=== PATIENT | female | born 1945 | race Caucasian/White ===

== ENCOUNTER 2018-01-29 09:48 | Emergency (ER) | payer MEDICARE ==
--- NOTE | 2018-01-29 11:04 | RAD ---
HISTORY: Right leg pain TECHNIQUE: Multiple transverse and longitudinal ultrasound images were obtained of the veins of the right lower extremity using grayscale, color Doppler, and spectral Doppler imaging with and without compression and with augmentation. FINDINGS: VEINS: The common femoral vein, deep femoral vein, femoral vein and popliteal vein are compressible throughout their course, with normal flow on color Doppler imaging and normal response to augmentation on spectral Doppler imaging. SOFT TISSUES: Grossly normal. No large popliteal fossa cyst was identified. IMPRESSION: No sonographic evidence of deep vein thrombosis.
--- OUTSIDE RECORDS SUMMARY | 2018-01-29 11:19 | XMS REPORT ---
:1945 External Reference #:[id number] Author Organization [facility] Address [address] [address] Phone [phone] Care Team Providers Name Role Phone Ehsan Padilla MD Primary Care Physician Unavailable Payers Type Date Identification Numbers Payment Provider Subscriber Medicare Primary Policy Number: [id number] Medicare Sidra Salazar PayID: [id number] [address] [place] [address] [facility] Policy Number: [id number] [facility] Sidra Salazar PayID: [id number] [address] [place] [address] Problems Date Description Provider Status Onset: 08/21/2015 Essential tremor Idalmis Parry M.D. Active Onset: 08/21/2015 Resting tremor Idalmis Parry M.D. Active Note: consistent with parkinson's disease Onset: 12/10/2015 Mild cognitive disorder Idalmis Parry M.D. Active Note: MoCA: 10/28: ; 01/28: ; 01/29: Onset: 12/10/2015 Olfactory hallucinations Idalmis Parry M.D. Active Onset: 12/10/2015 Spasmodic torticollis Idalmis Parry M.D. Active Family History Date Family Member(s) Problem(s) Comments General Cancer Social History Type Date Description Comments Lives With Roommate ETOH Use Denies alcohol use Smoking Patient is a former smoker patient quit in her early 20, smoked for approx. 5 yrs, ppd Exercise Type/Frequency Exercises regularly Allergies, Adverse Reactions, Alerts Date Description Reaction Status Severity Comments 08/21/2015 Quinolones Tendonitis active Severe 11/21/2014 NKDA inactive Medications Medication Date Status Form Strength Qnty SIG Indications Ordering Provider Baclofen 07/27 Active Tablets 10mg 60tab 1 by mouth G24.3 Idalmis s twice a day Mac Parry Carbidopa-Levodop 08/21 Active Tablets 25-100mg 120ta take one R25.1 Idalmis bs tablet by edouard Parry 30 M.DSandy minutes prior to breakfast, lunch and dinner, and 1 dose at 7pm Evista Active Tablets 60mg 30tab 1 by mouth Unknown /0000 s every day Metoprolol Active 25mg 1 tab po bid Unknown / Omeprazole Active Capsules 20mg 30cap 2 by mouth Unknown /0000 DR s every day Vitamin A Active Tablets 8000Units 1 by mouth Unknown /0000 every day B Complex Active Tab 50mg 1 tab po Unknown /0000 daily Multivitamins Active Tab 2 tabs po Unknown /0000 daily Benadryl Active Tablets 25mg 2 tab po qhs Unknown /0000 prn sleep Docusate Sodium Active Capsules 100mg 2 caps po Unknown /0000 daily Cyanocobalamin Active Tablets 1000mcg one po a day Unknown /0000 Sub Duloxetine HCL Active Caps DR 60mg 1 by mouth Unknown /0000 Part every day Lorazepam Active Tablets 0.5mg 1 tab po q Unknown /0000 8h prn Metamucil Active Powder 30.9% mix 2 Unknown /0000 tablespoon in 8 oz water daily prn Oxycodone-Acetami Active Tablets 5-325mg take 1 Unknown nophen /0000 tablet by mouth every 6 hours as needed pain Prochlorperazine Active Tablets 10mg 1 by mouth Unknown Maleate /0000 every 6 hours as needed nausea Sucralfate Active Tablets 1gm 1 by mouth 4 Unknown /0000 times a day Calcium Citrate + Active Tablets 315-250mg bid Unknown D3 Maximum /0000 -Unit Oxybutynin Active Tablets 5mg qd Unknown Chloride ER /0000 ER 24HR Primidone 06/09 Hx Tablets 50mg 30tab 1 tab by Rayo /2015 s mouth a day Zulema Espino MD 07/07 Primidone Hx Tab 250mg 1 tab po bid Unknown /0000 - 06/[address] 60mg 90cap 1 by mouth Unknown /0000 Part s every day - 10/14 Vitamin B 12 Hx Unknown /0000 - 08/14 Zyrtec Allergy Hx Unknown /0000 - 08/14 Augmented Hx Cream 0.05% apply to Unknown Betamethasone /0000 affected Dipropionate - area daily 08/14 prn /2014 Citracal + D Hx Tabs 4 tabs po Unknown / daily - 10/14 Cranberry Hx Cap 2 caps po Unknown Concentrate / daily - 01/23 Ferrous Gluconate Hx Tablets 324(37.5F 1 by mouth Unknown /0000 e) mg tid - 01/23 Tizanidine HCL Hx Tablets 4mg 1 tab po qhs Unknown /0000 for leg - cramps 07/27 Trazodone HCL Hx Tablets 100mg 1/2 to 1 tab Unknown /0000 po by mouth - every night 10/14 at bedtime /2014 prn Vitamin D Hx Tablets 1000Unit 1 tab po bid Unknown / - 04/20 Premarin Hx Cream 0.625mg/G use1 Unknown /0000 M applicator - intavaginal 10/11 3x per week /2016 Medications Administered in Office Medication Date Status Form Strength Qnty SIG Indications Ordering Provider Injection 10/12 Administered Injection Idalmis Onabotulinumtoxin /2016 Cowdery, A, 1 Unit M.D. Injection 07/08 Administered Injection Idalmis Onabotulinumtoxin /2016 Cowdery, A, 1 Unit M.D. Injection 07/08 Administered Injection Idalmis Onabotulinumtoxin /2017 Cowdery, A, 1 Unit M.D. Injection 02/18 Administered Injection Idalmis Onabotulinumtoxin /2017 Cowdery, A, 1 Unit M.D. Vital Signs Date Vital Result Comment 2018 Height 61 inches 5'1" Weight 126.38 lb Heart Rate 66 /min BP Systolic Sitting 112 mmHg BP Diastolic Sitting 70 mmHg Respiratory Rate 16 /min BMI (Body Mass Index) 23.9 kg/m2 11/30/2017 Height 61 inches 5'1" Weight 123.00 lb Heart Rate 60 /min BP Systolic Sitting 118 mmHg BP Diastolic Sitting 78 mmHg Respiratory Rate 16 /min BMI (Body Mass Index) 23.2 kg/m2 10/12/2017 Height 61 inches 5'1" Weight 123.50 lb Heart Rate 72 /min BP Systolic Sitting 108 mmHg BP Diastolic Sitting 72 mmHg Respiratory Rate 16 /min BMI (Body Mass Index) 23.3 kg/m2 07/27/2017 Height 61 inches 5'1" Weight 118.00 lb Heart Rate 68 /min BP Systolic Sitting 110 mmHg BP Diastolic Sitting 74 mmHg Respiratory Rate 16 /min BMI (Body Mass Index) 22.3 kg/m2 07/08/2017 Height 61 inches 5'1" Weight 118.00 lb Heart Rate 60 /min BP Systolic Sitting 110 mmHg BP Diastolic Sitting 60 mmHg Respiratory Rate 16 /min BMI (Body Mass Index) 22.3 kg/m2 04/04/2017 Height 61 inches 5'1" Weight 121.00 lb Heart Rate 76 /min BP Systolic Sitting 112 mmHg BP Diastolic Sitting 74 mmHg Respiratory Rate 14 /min BMI (Body Mass Index) 22.9 kg/m2 02/18/2017 Height 61 inches 5'1" Weight 122.00 lb Heart Rate 64 /min BP Systolic Sitting 128 mmHg BP Diastolic Sitting 78 mmHg Respiratory Rate 14 /min BMI (Body Mass Index) 23.0 kg/m2 01/24/2017 Height 61 inches 5'1" Weight 120.00 lb Heart Rate 68 /min BP Systolic Sitting 108 mmHg BP Diastolic Sitting 68 mmHg Respiratory Rate 14 /min BMI (Body Mass Index) 22.7 kg/m2 04/21/2016 Height 61 inches 5'1" Weight 117.00 lb Heart Rate 76 /min BP Systolic Sitting 122 mmHg BP Diastolic Sitting 78 mmHg Respiratory Rate 14 /min BMI (Body Mass Index) 22.1 kg/m2 12/10/2015 Height 61 inches 5'1" Weight 122.00 lb Heart Rate 72 /min BP Systolic Sitting 112 mmHg BP Diastolic Sitting 68 mmHg Respiratory Rate 20 /min BMI (Body Mass Index) 23.0 kg/m2 11/12/2015 Height 61 inches 5'1" Weight 124.00 lb Heart Rate 68 /min BP Systolic Sitting 112 mmHg BP Diastolic Sitting 64 mmHg Respiratory Rate 16 /min BMI (Body Mass Index) 23.4 kg/m2 08/21/2015 Height 61 inches 5'1" Weight 128.00 lb Heart Rate 68 /min BP Systolic Sitting 120 mmHg BP Diastolic Sitting 74 mmHg Respiratory Rate 20 /min BMI (Body Mass Index) 24.2 kg/m2 11/21/2014 Height 63 inches 5'3" Weight 120.00 lb Heart Rate 65 /min BP Systolic 106 mmHg BP Diastolic 64 mmHg BMI (Body Mass Index) 21.3 kg/m2 Results Description No Information Procedures Date CPT Code Description Status 10/12/2017 15271 Chemodenervation Of Neck Muscles Excluding Larynx, Completed Unilateral 07/08/2017 98057 Chemodenervation Of Neck Muscles Excluding Larynx, Completed Unilateral 02/18/2017 42016 Chemodenervation Of Neck Muscles Excluding Larynx, Completed Unilateral 11/12/2015 52173 EEG Recording Awake & Drowsy Completed Encounters Type Date Location Provider CPT E/M Dx Office Visit 2018 8:00a [facility] Idalmis Parry M.D. 15120 G20 [facility] Research Physician G24.3 G31.84 Office Visit 11/30/2017 11:45a [facility] Idalmis Parry M.D. 35586 G20 [facility] Physician G24.3 G25.0 G31.84 Office Visit 07/27/2017 2:00p [facility] Idalmis Parry M.D. 60476 G24.3 Services [facility] Faculty Research Physician G20 G25.0 Office Visit 04/04/2017 4:30p [facility] Idalmis Parry M.D. 94450 G24.3 Services [facility] Research Physician G20 Office Visit 01/24/2017 10:30a [facility] Idalmis Parry M.D. 57881 G20 [facility] Physician G25.0 G31.84 G24.3 Office Visit 04/21/2016 1:15p [facility] Idalmis Parry M.D. 40259 G20 [facility] Physician G25.0 G31.84 G24.3 Office Visit 12/10/2015 11:00a [facility] Idalmis Parry M.D. 90749 G20 G25.0 G24.3 G31.84 R44.2 Office Visit 11/22/2015 12:27p [facility] Keshia Rutherford, 63670 T18.2xxA Assoc, Hospitalists Mac Z98.84 R00.2 F32.9 Office Visit 11/12/2015 10:00a [facility] Idalmis Parry M.D. 81443 G20 R44.2 R41.89 G25.0 G24.3 Office Visit 08/21/2015 9:00a [facility] Idalmis Parry, 69569 G25.0 Mac G25.2 R41.89 Office Visit 11/21/2014 8:00a [facility], 04512 727.05 Mery Watts Office Visit 03/19/2013 11:25a [facility] Ana Luisa Arellano, N.P. 44529 789.06 Assoc, Hospitalists 787.02 793.99 275.42 Office Visit 03/18/2013 11:24a [facility], Vlad Armijo, 77516 789.06 Hospitalists N.P. 787.02 793.99 275.42 Office Visit 03/17/2013 11:23a [facility] [place] [address] 789.06 Hospitalists 787.02 793.99 275.42 Plan of Care Future Appointment(s):05/24/2018 10:45 am - Idalmis Parry M.D. at [facility]08/02/2018 10:30 am - Idalmis Parry M.D. at [facility]2018 - Idalmis Parry M.D.G20 Parkinson's diseaseFollow up:4 months for parkinsons (15 min) every 3 months for botox (30 min)G24.3 Spasmodic torticollisFollow up:botox: q 3 ukpndnS04.84 Mild cognitive impairment, so stated
--- NOTE | 2018-01-29 11:45 | ED ---
Lower Extremity - HPI Summary HPI Summary: 73 female presents to ED with complaints of right lower extremity/calf pain that began approximately 1 week ago and worsened this morning after touching it accidentally with her left foot. States the pain as been a dull ache worse with use of calf, walking etc. States the pain this morning woke her up from sleep. She does get cramps/muscle spasms throughout MSK and does have parkinsons. Denies any discoloration, erythema, edema, numbness/tingling or obvious external findings. Pain increases when moving calf muscle. No other complaints. No PMHX. Has not tried any medications. Does take baclofen daily for her torticollis. No recent trauma or injury. No recent travel, prolonged bed rest, cigarette use. No cancer history or DVT history. No anticoagulant therapy. Unable to take NSAIDs due to getting uclers. no chest pain or trouble breathing. - History of Current Complaint Chief Complaint: EDExtremityLower Stated Complaint: RT LEG PAIN Time Seen by Provider: 01/29/18 10:55 Hx Obtained From: Patient Mechanism Of Injury: Unknown Onset of Pain: Days Onset/Duration: Resolved Severity Initially: Mild Severity Currently: Mild Pain Intensity: 2 Pain Scale Used: 0-10 Numeric Timing: Intermittent Location: Is Discrete @ - right posterior calf Character Of Pain: Sharp, Aching Associated Signs And Symptoms: Positive: Negative Aggravating Factor(s): Movement Alleviating Factor(s): Rest Able to Bear Weight: Yes Legs: 1 - pain - Allergies/Home Medications Allergies/Adverse Reactions: Allergies Allergy/AdvReac Type Severity Reaction Status Date / Time Quinazolinones Allergy Joint Pain Verified 01/29/18 10:02 PMH/Surg Hx/FS Hx/Imm Hx Endocrine/Hematology History: Denies: Hx Diabetes Cardiovascular History: Reports: Other Cardiovascular Problems/Disorders - PALPITATIONS Denies: Hx Hypertension, Hx Pacemaker/ICD GI History: Reports: Hx Gall Bladder Disease, Hx Gastroesophageal Reflux Disease , Hx Hiatal Hernia, Hx Obstructive Bowel, Other GI Disorders - gastric bypass. Lysis of adhesions History: Denies: Hx Renal Disease Musculoskeletal History: Reports: Hx Arthritis, Hx Osteoporosis, Hx Scoliosis Sensory History: Reports: Hx Contacts or Glasses Denies: Hx Hearing Aid Opthamlomology History: Reports: Hx Contacts or Glasses Psychiatric History: Reports: Hx Depression Denies: Hx Panic Disorder - Surgical History Surgery Procedure, Year, and Place: GASTRIC BYPASS 2008 cholycystectomy 1985, lysis of adhesions. fundopycation. Hysterectomy 1987, CATARACT - Immunization History Immunizations Up to Date: Yes Infectious Disease History: No Infectious Disease History: Denies: Traveled Outside the [place] in Last 30 Days - Family History Known Family History: Positive: None - Social History Alcohol Use: None Substance Use Type: Reports: None Smoking Status (MU): Former Smoker Type: Cigarettes Have You Smoked in the Last Year: No Review of Systems Constitutional: Negative Cardiovascular: Negative Respiratory: Negative Positive: Arthralgia, Myalgia - right calf Skin: Negative All Other Systems Reviewed And Are Negative: Yes Physical Exam Triage Information Reviewed: Yes Vital Signs On Initial Exam: Initial Vitals Temp Pulse Resp BP Pulse Ox 98.2 F 86 14 126/74 98 01/29/18 10:02 01/29/18 10:02 01/29/18 10:02 01/29/18 10:02 01/29/18 10:02 Vital Signs Reviewed: Yes Appearance: Positive: Well-Appearing, No Pain Distress, Well-Nourished Skin: Positive: Warm, Skin Color Reflects Adequate Perfusion, Dry. Negative: Cold, Cyanosis @, Pale, Erythema @ Head/Face: Positive: Normal Head/Face Inspection Neck: Positive: Supple Respiratory/Lung Sounds: Positive: Clear to Auscultation, Breath Sounds Present. Negative: Rales, Rhonchi, Wheezes Cardiovascular: Positive: Normal, RRR, Pulses are Symmetrical in both Upper and Lower Extremities - 2+ pedal bl. Negative: Murmur, Rub, Leg Edema Left, Leg Edema Right Musculoskeletal: Positive: Normal, Strength/ROM Intact, Pain @ - with plantar flexion and use of gastrocnemius muscle, no pain at rest or palpation, Other - no swelling, obvious deformity or erythema/edema. normal external exam. CMS intact. Negative: Limited @, Interruption @, Edema Left, Edema Right Neurological: Positive: Normal, Sensory/Motor Intact, Alert, Oriented to Person Place, Time, CN Intact II-III, Reflexes Intact, NV Bundle Intact Distally, Normal Gait Diagnostics - Vital Signs Vital Signs Temp Pulse Resp BP Pulse Ox 01/29/18 10:02 98.2 F 86 14 126/74 98 - Laboratory Lab Statement: Any lab studies that have been ordered have been reviewed, and results considered in the medical decision making process. - Ultrasound No standard instances Ultrasound Interpretation: No Acute Changes - No sonographic evidence of deep vein thrombosis. Ultrasound Interpretation Completed By: Radiologist Lower Extremity Course/Dx - Course Course Of Treatment: US obtained and negative for acute findings, cysts, DVTs. No recent trauma or injury requiring further imaging. Normal physical exam other than with use of calf muscle having pain. Appears to be sore from muscle cramp/spasm or muscle strain. unable to take nsaids. take pain medication and muscle relaxer already prescribed. [place] wrap applied for compression. gently stretch/massage. rest and heat. aware of worsening signs and symptoms to watch out for and to follow up with PCP. no other emergent etologies/concerns at this time. normal vitals. - Diagnoses Differential Diagnosis/HQI/PQRI: Positive: Sprain, Strain, Other - muscle cramp , muscle spasm, right calf pain Provider Diagnoses: Muscle spasm of right lower extremity, Right calf pain Discharge - Discharge Plan Condition: Good Disposition: HOME Patient Education Materials: Musculoskeletal Pain (ED), Muscle Cramp (ED) Referrals: Ehsan Padilla MD [Primary Care Provider] - 3 Days Additional Instructions: continue taking medications as prescribed at home. increase fluid intake, get plenty of vitamins and electrolytes to help prevent muscle cramping. Rest, apply heating pad and apply compression. Avoid over use. Gently stretch calf especially before use. Any new or worsening symptoms please seek medical attention promptly. Follow up with PCP for recheck in 3 days.
[2018-01-29 12:05] VITALS: BP 110/58
== END 2018-01-29 12:14 | disposition home or self-care (01) ==
LOC: ED 09:48
DX: M79.661 Pain in right lower leg (principal); M62.831 Muscle spasm of calf; Z88.8 Allergy status to other drugs, medicaments and biological substances; Z87.891 Personal history of nicotine dependence
CPT/HCPCS: 99282

== ENCOUNTER 2018-04-04 14:14 | Emergency (ER) | payer MEDICARE ==
[2018-04-04 14:38] VITALS: BP 120/70
--- NOTE | 2018-04-04 15:10 | UC ---
Lower Extremity/Ankle HPI - HPI Summary HPI Summary: PT STATES HER FEET "FELL ASLEEP" YESTERDAY WHILE SHE WAS SITTING DOWN (NOT UNUSUAL FOR HER) THEN SHE WENT TO STAND UP AND FELL. NOW HAS PAIN IN LEFT FOOT LATERALLY. SHE HAS BASELINE FOOT/ANKLE EDEMA AND SHE STATES THIS IS UNCHANGED FROM HER BASELINE. NO BRUISING. CAN WEIGHT BEAR BUT WITH PAIN. - History of Current Complaint Chief Complaint: UCLowerExtremity Stated Complaint: FOOT INJURY Time Seen by Provider: 04/04/18 15:00 Hx Obtained From: Patient Onset/Duration: Sudden Onset, Lasting Days - 1 DAY, Still Present Severity Initially: Moderate Severity Currently: Moderate Pain Intensity: 7 Pain Scale Used: 0-10 Numeric Aggravating Factor(s): Standing, Ambulation Alleviating Factor(s): Rest Able to Bear Weight: Yes - WITH PAIN - Allergies/Home Medications Allergies/Adverse Reactions: Allergies Allergy/AdvReac Type Severity Reaction Status Date / Time NSAIDS (Non-Steroidal Allergy Severe See Comment Verified 04/04/18 14:40 Anti-Inflamma Quinazolinones Allergy BILAT Verified 04/04/18 14:39 ACHILLES TENDONITIS Home Medications: Home Medications Glucosamine CAP (NF) 1 cap PO DAILY 04/04/18 [History Confirmed 04/04/18] Magnesium Oxide [Magnesium] 400 mg PO DAILY 04/04/18 [History Confirmed 04/04/18 ] Muscle Relaxer* PO BID 04/04/18 [History] PMH/Surg Hx/FS Hx/Imm Hx Other Neurological History: PARKINSONS - Surgical History Surgical History: Yes Surgery Procedure, Year, and Place: GASTRIC BYPASS 2007 cholycystectomy 1985, lysis of adhesions. fundopycation. Hysterectomy 1987, CATARACT, TONISILLECTOMY - Family History Known Family History: Positive: None Negative: Hypertension - Social History Alcohol Use: None Substance Use Type: None Smoking Status (MU): Former Smoker Type: Cigarettes Have You Smoked in the Last Year: No - Immunization History Most Recent Influenza Vaccination: August 2015 Most Recent Tetanus Shot: 2013 Most Recent Pneumonia Vaccination: 2007 Review of Systems Constitutional: Negative Skin: Negative Respiratory: Negative Cardiovascular: Negative Gastrointestinal: Negative Musculoskeletal: Arthralgia, Edema All Other Systems Reviewed And Are Negative: Yes Physical Exam Triage Information Reviewed: Yes Appearance: Well-Appearing, No Pain Distress, Well-Nourished Vital Signs: Initial Vital Signs Temp 97.9 F 04/04/18 14:34 Pulse 56 04/04/18 14:34 Resp 16 04/04/18 14:34 BP 120/70 04/04/18 14:34 Pulse Ox 99 04/04/18 14:34 Vital Signs Reviewed: Yes Eyes: Positive: Conjunctiva Clear ENT: Positive: Hearing grossly normal Neck: Positive: Supple Respiratory: Positive: No respiratory distress, No accessory muscle use Cardiovascular: Positive: Pulses Normal Abdomen Description: Positive: Soft Musculoskeletal: Positive: ROM Intact, Edema @ - 1+ NON PITTING EDEMA BILATERAL ANKLES, Other: - ACHILLES INTACT. TTP LEFT 5TH METATARSAL. NO TENDERNESS OVER ANKLE Neurological: Positive: Alert Psychological: Positive: Age Appropriate Behavior Skin: Negative: rashes Diagnostics - Radiology LEFT FOOT XRAY Xray Interpretation: No Acute Changes - NO ACUTE OSSEOUS INJURY. THE DEGREE OF OSTEOPENIA MAY MAKE A NONDISPLACED FRACTURE RADIOGRAPHICALLY OCCULT. IF SYMPTOMS PERSIST, RECOMMEND REPEAT IMAGING. Radiology Interpretation Completed By: Radiologist Lower Extremity Course/Dx - Differential Dx/Diagnosis Provider Diagnoses: LEFT FOOT SPRAIN Discharge - Sign-Out/Discharge Documenting (check all that apply): Discharge/Admit/Transfer - Discharge Plan Condition: Stable Disposition: HOME Patient Education Materials: Foot Sprain (ED) Referrals: Gideon Pollock MD [Medical Doctor] - If Needed Ehsan Padilla MD [Primary Care Provider] - If Needed Additional Instructions: NO FRACTURE ON FOOT XRAY TODAY BUT GIVEN YOUR LEVEL OF BONE DENSITY LOSS THERE COULD BE A SMALL FRACTURE THAT WE CAN'T SEE. IF YOUR SYMPTOMS DO NOT IMPROVE EXPECTED OVER THE NEXT 1-2 WEEKS FOLLOW-UP WITH YOUR PCP OR ORTHO YOU MAY BENEFIT FROM REPEAT IMAGING. REST, ICE, COMPRESS, ELEVATE. POST-OP SHOE FOR COMFORT WHEN AMBULATING NEEDED. - Billing Disposition and Condition Condition: STABLE Disposition: HOME
--- NOTE | 2018-04-04 15:34 | RAD ---
HISTORY: Left foot pain, fall COMPARISONS: None VIEWS: 3, Frontal, lateral, and oblique views of the left foot FINDINGS: BONE DENSITY: There is diffuse osteopenia. BONES: There is no displaced fracture. 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 There is osteoarthritis of the first MTP joint. ALIGNMENT: There is no dislocation. SOFT TISSUES: Unremarkable. OTHER FINDINGS: None. IMPRESSION: 1. OSTEOPENIA. 2. OSTEOARTHRITIS. 3. NO ACUTE OSSEOUS INJURY. THE DEGREE OF OSTEOPENIA MAY MAKE A NONDISPLACED FRACTURE RADIOGRAPHICALLY OCCULT. IF SYMPTOMS PERSIST, RECOMMEND REPEAT IMAGING.
== END 2018-04-04 16:00 | disposition home or self-care (01) ==
LOC: UCEAST 14:14
DX: S93.602A Unspecified sprain of left foot, initial encounter (principal); W18.39XA Other fall on same level, initial encounter; Y93.9 Activity, unspecified; Y92.9 Unspecified place or not applicable; M85.872 Other specified disorders of bone density and structure, left ankle and foot; M19.072 Primary osteoarthritis, left ankle and foot; R60.0 Localized edema; G20 Parkinson's disease; Z88.6 Allergy status to analgesic agent; Z88.8 Allergy status to other drugs, medicaments and biological substances; Z87.891 Personal history of nicotine dependence
CPT/HCPCS: 99213; G0463

== ENCOUNTER 2018-07-04 10:22 | Emergency (ER) | payer MEDICARE ==
--- OUTSIDE RECORDS SUMMARY | 2018-07-04 10:29 | XMS REPORT ---
:1945 External Reference #:[id number] Author Organization [facility] Address [address] [place] [address] [place] [address] Phone [phone] Care Team Providers Name Role Phone Ehsan Padilla MD Primary Care Physician Unavailable Payers Type Date Identification Numbers Payment Provider Subscriber Medicare Primary Policy Number: [id number] Medicare Sidra Salazar PayID: [id number] [address] [place] [address] [facility] Policy Number: [id number] [facility] Sidra Salazar PayID: [id number] [address] [place] [address] Problems Date Description Provider Status Onset: 08/21/2015 Essential tremor Idalmis Parry M.D. Active Onset: 08/21/2015 Resting tremor Idalmis Parry M.D. Active Note: consistent with parkinson's disease Onset: 12/10/2015 Mild cognitive disorder Idalmis Parry M.D. Active Note: MoCA: 10/28: ; 01/28: ; 01/29: Onset: 12/10/2015 Olfactory hallucinations Idalmis Parry M.D. Active Onset: 12/10/2015 Spasmodic torticollis Idalmis Parry M.D. Active Onset: 04/14/2018 Closed fracture of metatarsal bone Gideon Pollock MD Active Family History Date Family Member(s) Problem(s) [...] Tablets 10mg 60tab 1 by mouth G24.3 s twice a day Mac Parry Carbidopa-Levodop 08/21 Active Tablets 25-100mg 360ta take one R25.1 bs tablet by edouard Parry 30 M.DSandy minutes prior to breakfast, lunch and dinner, and 1 dose at 7pm Evista Active Tablets 60mg 30tab 1 by mouth Unknown / s every day Metoprolol Active 25mg 1 tab po bid Unknown / Omeprazole Active Capsules 20mg 30cap 1 cap by Unknown / DR s mouth twice daily Vitamin A Active Tablets [id number] 1 by mouth Unknown / every day B Complex Active Tab 50mg 1 tab po Unknown / daily Multivitamins Active Tab 2 tabs po Unknown / daily Benadryl Active Tablets 25mg 2 tab po qhs Unknown / prn sleep Docusate Sodium Active Capsules 100mg 2 caps po Unknown / daily Cyanocobalamin Active Tablets 1000mcg one po a day Sub Duloxetine HCL Active Caps DR 60mg 1 by mouth Unknown / Part every day Lorazepam Active Tablets 0.5mg 1 tab po q / 8h prn Oxycodone-Acetami Active Tablets 5-325mg take 1 Unknown nophen /0000 tablet by mouth every 6 hours as needed pain Prochlorperazine Active Tablets 10mg 1 by mouth Unknown Maleate /0000 every 6 hours as needed nausea Calcium Citrate + Active Tablets 315-250mg bid Unknown D3 Maximum /0000 -Unit Oxybutynin Active Tablets 5mg qd Unknown Chloride ER /0000 ER 24HR Magnesium Active Capsules 400mg One A Day Unknown / Glucosamine Active Capsules 400mg Two Times A Unknown / Day CBD Oil Active 3 gtts daily Unknown Primidone 06/09 Hx Tablets 50mg 30tab 1 tab by Rayo s mouth a day Kenzie - 07/07 Primidone Hx Tab 250mg 1 tab [...] D Hx Tabs 4 tabs po Unknown /0000 daily - 10/14 Cranberry Hx Cap 2 caps po Unknown Concentrate /0000 daily - 01/23 Ferrous Gluconate Hx Tablets 324(37.5F 1 by mouth Unknown /0000 e) mg tid - 01/23 Metamucil Hx Powder 30.9% mix 2 Unknown /0000 tablespoon - in 8 oz 05/02 water /2017 prn Sucralfate Hx Tablets 1gm 1 by mouth 4 Unknown /0000 times a day - 05/02 Tizanidine HCL Hx Tablets 4mg 1 tab po qhs Unknown /0000 for leg - cramps 07/27 Trazodone HCL Hx Tablets 100mg 1/2 to 1 tab Unknown /0000 po by mouth - every night 10/14 at bedtime /2014 prn Vitamin D Hx Tablets 1000Unit 1 tab po bid Unknown /0000 - 04/20 Premarin Hx Cream 0.625mg/G use1 Unknown /0000 M applicator - intavaginal 10/11 3x per week /2016 Medications Administered in Office Medication Date Status Form Strength Qnty SIG Indications Ordering Provider Injection 05/03 Administered Injection Idalmis Onabotulinumtoxin /2017 Cowdery, A, 1 Unit M.D. Injection 01/18 Administered Injection Idalmis Onabotulinumtoxin /2017 Cowdery, A, 1 Unit M.D. Injection 10/12 Administered Injection Idalmis Onabotulinumtoxin /2016 Cowdery, A, 1 Unit M.D. Injection 07/08 Administered Injection Idalmis Onabotulinumtoxin /2016 Cowdery, A, 1 Unit M.D. Injection 07/08 Administered Injection Idalmis Onabotulinumtoxin /2016 Cowdery, A, 1 Unit M.D. Injection 02/18 Administered Injection Idalmis Onabotulinumtoxin /2016 Cowdery, A, 1 Unit M.D. Vital Signs Date Vital Result Comment 06/05/2018 Height 61 inches 5'1" Weight 122.00 lb BP Systolic 108 mmHg BP Diastolic 76 mmHg Body Temperature 96.2 F BMI (Body Mass Index) 23.0 kg/m2 05/29/2018 Height 61 inches 5'1" Weight 126.00 lb Heart Rate 68 /min BP Systolic 108 mmHg BP Diastolic 68 mmHg Respiratory Rate 12 /min Body Temperature 97.3 F Pain Level 7 BMI (Body Mass Index) 23.8 kg/m2 05/24/2018 Height 61 inches 5'1" Weight 122.00 lb Heart Rate 68 /min BP Systolic Sitting 100 mmHg BP Diastolic Sitting 64 mmHg Respiratory Rate 16 /min BMI (Body Mass Index) 23.0 kg/m2 05/03/2018 Height 61 inches 5'1" Weight 125.00 lb Declined Heart Rate 60 /min BP Systolic 102 mmHg BP Diastolic 60 mmHg Respiratory Rate 16 /min BMI (Body Mass Index) 23.6 kg/m2 04/14/2018 Height 61 inches 5'1" Weight 126.00 lb BP Systolic 112 mmHg BP Diastolic 66 mmHg Respiratory Rate 18 /min Body Temperature 96.4 F Pain Level 0 BMI (Body Mass Index) 23.8 kg/m2 2018 Height 61 inches 5'1" Weight 126.38 [...] Information Procedures Date CPT Code Description Status 06/01/2018 80092 Destruction ALL Benign Or Premalignant Lesion (Other Completed Than [place] 05/03/2018 54549 Chemodenervation Of Neck Muscles Excluding Larynx, Completed Unilateral 2018 10786 Chemodenervation Of Neck Muscles Excluding Larynx, Completed Unilateral 10/12/2017 97387 Chemodenervation Of Neck Muscles Excluding Larynx, Completed Unilateral 07/08/2017 54056 Chemodenervation Of Neck Muscles Excluding Larynx, Completed Unilateral 02/18/2017 08890 Chemodenervation Of Neck Muscles Excluding Larynx, Completed Unilateral 11/12/2015 43953 EEG Recording Awake & Drowsy Completed Encounters Type Date Location Provider CPT E/M Dx Office Visit 06/01/2018 2:00p [facility] [place] [address] L82.1 [place] L57.0 Office Visit 05/29/2018 2:30p [facility] [place] [address] M79.672 [facility] W19.xxxA Office Visit 05/24/2018 10:45a [facility] Idalmis Parry 24496 G24.3 Mac G20 Office Visit 04/14/2018 2:30p [facility] [address] S92.355A Of [facility] M79.672 M25.475 W19.xxxA Office Visit 2018 8:00a [facility] Idalmis Parry M.D. 10219 G20 Services Of [facility] G24.3 G31.84 Office Visit 11/30/2017 11:45a [facility] Idalmis Parry M.D. 74435 G20 Services Of [facility] G24.3 G25.0 G31.84 Office Visit 07/27/2017 2:00p [facility] Iadlmis Parry M.D. 75564 G24.3 Services Of [facility] G20 G25.0 Office Visit 04/04/2017 4:30p [facility] Idalmis Parry M.D. 60653 G24.3 Services Of [facility] G20 Office Visit 01/24/2017 10:30a [facility] Idalmis Parry M.D. 53545 G20 Services Of [facility] G25.0 G31.84 G24.3 Office Visit 04/21/2016 1:15p [facility] Idalmis Parry M.D. 47346 G20 Services Of [facility] G25.0 G31.84 G24.3 Office Visit 12/10/2015 11:00a [facility] Idalmis Parry M.D. 82005 G20 G25.0 G24.3 G31.84 R44.2 Office Visit 11/22/2015 12:27p [facility] Keshia Rutherford, [address] T18.2xxA Assoc, Hospitalists D.OSandy Z98.84 R00.2 F32.9 Office Visit 11/12/2015 10:00a [facility] Idalmis Parry M.D. 13787 G20 R44.2 R41.89 G25.0 G24.3 Office Visit 08/21/2015 9:00a [facility] Idalmis Parry 50363 G25.0 Mac G25.2 R41.89 Office Visit 11/21/2014 8:00a [facility] [place], 23338 727.05 Mery Watts Office Visit 03/19/2013 11:25a [facility] Ana Luisa Arellano, N.P. 40632 789.06 Assoc, Hospitalists 787.02 793.99 275.42 Office Visit 03/18/2013 11:24a [facility] Assoc, Vlad Armijo, 23576 789.06 Hospitalists N.P. 787.02 793.99 275.42 Office Visit 03/17/2013 11:23a [facility] Assoc, [place] [address] 789.06 Hospitalists 787.02 793.99 275.42 Plan of Care Future Appointment(s):08/07/2018 2:15 pm - Gideon Pollock MD at [facility]09/06/2018 3:00 pm - Bennett Perdue MD at [facility] Dfcrsfscjmb19/11 /2019 3:00 pm - Idalmis Parry M.D. at [facility]2017 11:00 am - Idalmis Parry M.D. at [facility]2017 10:45 am - Idalmis Parry M.D. at [facility]
[2018-07-04 10:51] VITALS: BP 111/59
--- NOTE | 2018-07-04 10:58 | UC ---
Abdominal Pain Female HPI - HPI Summary HPI Summary: 73 yo female presents with watery diarrhea since 07/02, but not feeling well overall since 06/30. She tells me that on 06/30 she felt tired and mildly nauseous. 07/01 felt similar. 07/02 developed diarrhea over 8-10 times a day since that time. Has been watery with lower abdominal cramping. No recent travel and has not eaten any new foods. She is able to drink water, but says she does not want to eat anything. Does still feel nauseous, but has not vomited. Denies fever, chills, SOB, chest pain, dysuria, blood in stool. - History of Current Complaint Chief Complaint: UCAbdominalPain Stated Complaint: DIARRHEA NAUSEA Time Seen by Provider: 07/04/18 10:58 Hx Obtained From: Patient Onset/Duration: Sudden Onset Severity Initially: Mild Severity Currently: Mild Pain Intensity: 2 Pain Scale Used: 0-10 Numeric Allergies/Adverse Reactions: Allergies Allergy/AdvReac Type Severity Reaction Status Date / Time NSAIDS (Non-Steroidal Allergy Severe See Comment Verified 07/04/18 12:02 Anti-Inflamma Quinazolinones Allergy BILAT Verified 07/04/18 12:02 ACHILLES TENDONITIS PMH/Surg Hx/FS Hx/Imm Hx - Additional Past Medical History Additional PMH: Anxiety GERD Overactive bladder HTN Chronic pain Parkinson's - Surgical History Surgical History: Yes Surgery Procedure, Year, and Place: GASTRIC BYPASS 2007. cholecystectomy 1985, . lysis of adhesions. fundopycation. Hysterectomy 1987,. CATARACT, TONISILLECTOMY - Family History Known Family History: Positive: None Negative: Hypertension - Social History Occupation: Employed Part-time, Retired Lives: With Family Alcohol Use: None Substance Use Type: None Smoking Status (MU): Former Smoker Type: Cigarettes Have You Smoked in the Last Year: No - Immunization History Most Recent Influenza Vaccination: August 2015 Most Recent Tetanus Shot: 2013 Most Recent Pneumonia Vaccination: 2007 Review of Systems Constitutional: Negative Skin: Negative Eyes: Negative ENT: Negative Respiratory: Negative Cardiovascular: Negative Gastrointestinal: Abdominal Pain, Diarrhea, Nausea Genitourinary: Negative Neurovascular: Negative Neurological: Negative Psychological: Negative All Other Systems Reviewed And Are Negative: Yes Physical Exam - Summary Physical Exam Summary: GENERAL: NAD. Appears fatigued. SKIN: No rashes, sores, lesions, or open wounds. NECK: Supple. Nontender. No lymphadenopathy. CHEST: CTAB. No r/r/w. No accessory muscle use. Breathing comfortably and in no distress. CV: RRR. Without m/r/g. Pulses intact. Cap refill <2seconds ABDOMEN: Mild TTP lower abdomen. Soft. No distention or guarding. No CVA tenderness. Bowel sounds present NEURO: Alert. CN II-XII grossly intact. PSYCH: Age appropriate behavior. Triage Information Reviewed: Yes Vital Signs: Initial Vital Signs Temp 97.6 F 07/04/18 10:49 Pulse 76 07/04/18 10:49 Resp 16 07/04/18 10:49 BP 111/59 07/04/18 10:49 Pulse Ox 98 07/04/18 10:49 Vital Signs Reviewed: Yes Abd Pain Female Course/Dx - Course Course Of Treatment: Discussed doing imaging, UA, and outpatient labwork in the UC, but I discussed the concern about possible electrolyte abnormalities given her diarrhea and gastric bypass. Pt was concerned about this as well and would labwork results today, there I have advised her to be further evaluated in the ED for a more appropriate work up. She declined ambulance transfer and will drive herself. - Differential Dx/Diagnosis Provider Diagnoses: Diarrhea. Nausea. Lower abdominal pain Discharge - Sign-Out/Discharge Documenting (check all that apply): Patient Departure All imaging exams completed and their final reports reviewed: No Studies - Discharge Plan Condition: Stable Disposition: TRANS HIGHER LVL OF CARE FAC Referrals: Ehsan Padilla MD [Primary Care Provider] - Additional Instructions: Please go to the ER for further evaluation of your diarrhea and abdominal pain - Billing Disposition and Condition Condition: STABLE Disposition: Trans Higher Lvl of Care Fac
== END 2018-07-04 11:17 | disposition short-term general hospital (02) ==
LOC: UCEAST 10:22
DX: R19.7 Diarrhea, unspecified (principal); R10.30 Lower abdominal pain, unspecified; R11.0 Nausea; Z98.84 Bariatric surgery status; Z87.891 Personal history of nicotine dependence; Z88.6 Allergy status to analgesic agent; Z88.8 Allergy status to other drugs, medicaments and biological substances
CPT/HCPCS: 99212; G0463

== ENCOUNTER 2018-07-04 11:42 | Emergency (ER) | payer MEDICARE ==
[2018-07-04] MEDS ORDERED: NS 0.9% 1000 ML* 1,000 ML IV ONE ×2 (12:20→14:01)
[2018-07-04 12:49] LABS: ABS Basophils 0 10^3/ul (0-0.2); ABS Eosinophils 0 10^3/ul (0-0.6); ABS Neutrophils 4.5 10^3/ul (1.5-7.7); ABS Nucleated RBC 0 10^3/ul; Eosinophil % 0.6 % (0-6); Hematocrit 42 % (35-47); Hemoglobin 14.6 g/dl (12.0-16.0); Lymphocyte % 15.7 % (25-47); Mean Corpuscular HGB Conc 35 g/dl (31-36); Mean Corpuscular Hemoglobin 34 pg (27-31); Mean Corpuscular Volume 98 fL (80-97); Nucleated Red Blood Cells % 0.1; Platelet Count 224 10^3/ul (150-450); Red Cell Distribution Width 13 % (10.5-15); White Blood Count 6.7 10^3/ul (3.5-10.8)
[2018-07-04 13:03] LABS: EGFR Non-African American 101.3 (>60)
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
[2018-07-04 15:44] LABS: Urine Appearance Cloudy; Urine Blood Negative (Negative); Urine Color Yellow; Urine Ketones 1+ (Negative); Urine Protein Negative (Negative); Urine Specific Gravity 1.003 (1.010-1.030); Urine Urobilinogen Negative (Negative)
[2018-07-04] MEDS ORDERED: metroNIDAZOLE TAB* 250 MG PO ONE (15:50)
[2018-07-04 16:00] VITALS: BP 121/63
== END 2018-07-04 16:18 | disposition home or self-care (01) ==
LOC: ED 11:42
DX: R19.7 Diarrhea, unspecified (principal); R19.5 Other fecal abnormalities; Z87.891 Personal history of nicotine dependence; Z88.5 Allergy status to narcotic agent; Z88.6 Allergy status to analgesic agent; R10.30 Lower abdominal pain, unspecified; R11.0 Nausea; Z98.84 Bariatric surgery status; Z88.8 Allergy status to other drugs, medicaments and biological substances
CPT/HCPCS: 36415; 80053; 81003; 83605; 83630; 83690; 83735; 85025; 86140; 87040; 87045; 87046; 87493; 87899; 96360; 96361; 99283; A9270-GY

== ENCOUNTER 2019-02-03 11:43 | Observation (INO) | payer MEDICARE ==
--- NOTE | 2019-02-03 13:09 | ED ---
Dizziness - HPI Summary HPI Summary: This patient is a 74 year old female presenting to [facility] accompanied by daughter with a chief complaint of dizziness since last night. Patient states that she woke up in the night yesterday feeling incredibly thirsty and hungry. Patient states she drank 6 glasses of water and went back to sleep. Currently, patient states that she is having leg cramps and dizziness in the morning. The pain is rated 0/10 in severity. Symptoms aggravated by nothing. Symptoms alleviated by nothing. Patient additionally reports leg cramps, SOB. - History Of Current Complaint Chief Complaint: EDGeneral Stated Complaint: DIZZINESS, LEG CRAMPS, PER PT Time Seen by Provider: 02/03/19 12:50 Hx Obtained From: Patient Onset/Duration: Still Present Timing: Hours Severity Currently: Moderate Character: Weak, Dizzy Aggravating Factor(s): Nothing Alleviating Factor(s): Nothing Associated Signs And Symptoms: Positive: Other: - leg cramps, SOB - Allergies/Home Medications Allergies/Adverse Reactions: Allergies Allergy/AdvReac Type Severity Reaction Status Date / Time NSAIDS (Non-Steroidal Allergy Severe See Comment Verified 02/03/19 12:01 Anti-Inflamma Quinazolinones Allergy BILAT Verified 02/03/19 12:01 ACHILLES TENDONITIS Home Medications: Home Medications Meño-Mag Complex 300-150 mg Tab 02/03/19 [History] Mirabegron 25 mg PO DAILY 02/03/19 [History Confirmed 02/03/19] PMH/Surg Hx/FS Hx/Imm Hx Previously Healthy: No Endocrine/Hematology History: Denies: Hx Diabetes Cardiovascular History: Reports: Other Cardiovascular Problems/Disorders - PALPITATIONS Denies: Hx Hypertension, Hx Pacemaker/ICD GI History: Reports: Hx Gall Bladder Disease, Hx Gastroesophageal Reflux Disease , Hx Hiatal Hernia, Hx Obstructive Bowel, Other GI Disorders - gastric bypass. Lysis of adhesions History: Denies: Hx Renal Disease Musculoskeletal History: Reports: Hx Arthritis, Hx Osteoporosis, Hx Scoliosis Sensory History: Reports: Hx Contacts or Glasses Denies: Hx Hearing Aid Opthamlomology History: Reports: Hx Contacts or Glasses Psychiatric History: Reports: Hx Depression Denies: Hx Panic Disorder - Surgical History Surgery Procedure, Year, and Place: GASTRIC BYPASS 2007. cholecystectomy 1985, . lysis of adhesions. fundopycation. Hysterectomy 1987,. CATARACT, TONISILLECTOMY - Immunization History Date of Influenza Vaccine: 08/2018 Immunizations Up to Date: Yes Infectious Disease History: No Infectious Disease History: Denies: Traveled Outside the [place] in Last 30 Days - Family History Known Family History: Negative: Hypertension - Social History Lives: With Family Alcohol Use: None Hx Substance Use: Yes Substance Use Type: Reports: Other Substance Use Comment - Amount & Last Used: CBD oil Hx Tobacco Use: Yes Smoking Status (MU): Former Smoker Type: Cigarettes Have You Smoked in the Last Year: No Review of Systems Negative: Fever Positive: Shortness Of Breath Positive: Other - Leg cramps Neurological: Other - Dizziness Positive: Weakness All Other Systems Reviewed And Are Negative: Yes Physical Exam - Summary Physical Exam Summary: Appearance: The patient is well-nourished in no acute distress and in no acute pain. Skin: The skin is warm and dry and skin color reflects adequate perfusion. HEENT: The head is normocephalic and atraumatic. The pupils are equal and reactive. The conjunctivae are clear and without drainage. Nares are patent and without drainage. Mouth reveals moist mucous membranes and the throat is without erythema and exudate. The external ears are intact. The ear canals are patent and without drainage. The tympanic membranes are intact. Neck: The neck is supple with full range of motion and non-tender. There are no carotid bruits. There is no neck vein distension. Respiratory: Chest is non-tender. Lungs are clear to auscultation and breath sounds are symmetrical and equal. Cardiovascular: Heart is borderline tachycardic. There is no murmur or rub auscultated. There is no peripheral edema and pulses are symmetrical and equal. Abdomen: The abdomen is soft and non-tender. There are normal bowel sounds heard in all four quadrants and there is no organomegaly palpated. Musculoskeletal: There is no back tenderness noted. Extremities are non-tender with full range of motion. There is good capillary refill. There is no peripheral edema or calf tenderness elicited. Neurological: Patient is alert and oriented to person, place and time. The patient has symmetrical motor strength in all four extremities. Cranial nerves are grossly intact. Deep tendon reflexes are symmetrical and equal in all four extremities. Psychiatric: The patient has an appropriate affect and does not exhibit any anxiety or depression. Triage Information Reviewed: Yes Vital Signs On Initial Exam: Initial Vitals Temp Pulse Resp BP Pulse Ox 99.5 F 96 18 108/79 98 02/03/19 11:57 02/03/19 11:57 02/03/19 11:57 02/03/19 11:57 02/03/19 11:57 Vital Signs Reviewed: Yes Diagnostics - Vital Signs Vital Signs Temp Pulse Resp BP Pulse Ox 02/03/19 11:57 99.5 F 96 18 108/79 98 - Laboratory Result Diagrams: 02/04/19 05:35 02/04/19 05:35 Lab Statement: Any lab studies that have been ordered have been reviewed, and results considered in the medical decision making process. - Radiology CXR Radiology Interpretation Completed By: Radiologist Summary of Radiographic Findings: CXR reveals, per radiologist, IMPRESSION: LOW LUNG VOLUMES WITH LINEAR ATELECTASIS OF THE RIGHT LUNG BASE. ED physician has reviewed this radiology report. - CT CT Head CT Interpretation Completed By: Radiologist Summary of CT Findings: CT Head reveals, per radiologist, IMPRESSION: 1. NO INTERNAL CAROTID ARTERY STENOSIS BY NASCET CRITERIA. 2. NO ANEURYSM, VASCULAR MALFORMATION, OCCLUSION, OR STENOSIS OF THE VISUALIZED INTRACRANIAL CIRCULATION. ED physician has reviewed this radiology report. CT Brain CT Interpretation Completed By: Radiologist Summary of CT Findings: CT Brain reveals, per radiologist, IMPRESSION: NO ACUTE INTRACRANIAL PATHOLOGY. ED physician has reviewed this radiology report. - EKG 1516 Cardiac Rate: NL EKG Rhythm: Sinus Rhythm - 88 BPM Summary of EKG Findings: An EKG, taken 1516, reveals NSR (88 BPM), Nonspecific anterolateral changes similar to but more pronounced than 11/03/14. Dizzy Course/Dx - Course Course Of Treatment: Ms. Salazar presented to the emergency department with some vague complaints. The involved waking up during the night and being very thirsty, intermittent leg cramping and some dizziness. The dizziness did not involve any whirling or room movement but she states that she lists to the left when she tries to walk. Her vital signs are stable here, she was nontoxic in appearance and I cannot detect any problem with her gait. She had no nystagmus and I could not reproduce her symptoms. While she was here she redeveloped the thirstiness. I consult with Dr. Centeno because of my concern for posterior event given her description of her gait. He recommended admission to the hospitalist and consultation after CTA. The hospice were contacted when her CT revealed no retrievable clot. - Diagnoses Provider Diagnoses: Ataxia, Dizziness - Provider Notifications Discussed Care Of Patient With: Shira Nowak - Hospitalist Time Discussed With Above Provider: 18:26 - We discussed patient care with Dr. Nowak (Hospitalist) at 1826 and they agreed to accept the patient. Discharge - Sign-Out/Discharge Documenting (check all that apply): Patient Departure Patient Received Moderate/Deep Sedation with Procedure: No - Discharge Plan Condition: Stable Disposition: ADMITTED TO [facility] - Billing Disposition and Condition Condition: STABLE Disposition: Admitted to [facility] - Attestation Statements Document Initiated by Davidibe: Yes Documenting Scribe: Shala Morel Provider For Whom Trevor is Documenting (Include Credential): Santiago Lopez MD Scribe Attestation: Shala Viveros scribed for Santiago Lopez MD on 02/04/19 at 2058. Scribe Documentation Reviewed: Yes Provider Attestation: The documentation as recorded by the Shala sanford accurately reflects the service I personally performed and the decisions made by , Santiago Lopez MD Status of Scribvishal Document: Viewed
[2019-02-03] MEDS ORDERED: NS 0.9% 1000 ML** 1,000 ML IV ONE ×2 (13:12→15:06)
[2019-02-03 13:42] LABS: ABS Basophils 0 10^3/ul (0-0.2); ABS Eosinophils 0 10^3/ul (0-0.6); ABS Lymphocytes 0.3 10^3/ul (1.0-4.8); ABS Monocytes 0.3 10^3/ul (0-0.8); ABS Neutrophils 8.4 10^3/ul (1.5-7.7); ABS Nucleated RBC 0 10^3/ul; Eosinophil % 0.5 %; Hematocrit 43 % (33-41); Hemoglobin 14.5 g/dL (12.0-16.0); Lymphocyte % 2.8 %; Mean Corpuscular HGB Conc 34 g/dL (31-36); Mean Corpuscular Hemoglobin 33 pg (27-31); Mean Corpuscular Volume 97 fL (80-97); Mean Platelet Volume 7.5 fL (7.4-10.4); Nucleated Red Blood Cells % 0.1; Platelet Count 210 10^3/uL (150-450); Red Blood Count 4.45 10^6 /uL (3.70-4.87); Red Cell Distribution Width 13 % (10.5-15)
[2019-02-03 13:52] LABS: INR 0.99 (0.77-1.02)
[2019-02-03 13:58] LABS: Albumin 3.8 g/dL (3.2-5.2); Albumin/Globulin Ratio 1.3 (1-3); BUN/Creatinine Ratio 30.9 (8-20); C Reactive Protein 25.14 mg/L (<8.01); Calcium 8.6 mg/dL (8.6-10.3); EGFR Non-African American 107.5 (>60); Potassium 3.2 mmol/L (3.5-5.0); Total Bilirubin 0.4 mg/dL (0.2-1.0); Total Protein 6.8 g/dL (6.4-8.9)
[2019-02-03 14:56] LABS: Urine Appearance Cloudy; Urine Bacteria 1+ (Absent); Urine Bilirubin Negative (Negative); Urine Blood 2+ (Negative); Urine Color Yellow; Urine Glucose Negative (Negative); Urine Ketones Negative (Negative); Urine Nitrite Positive (Negative); Urine Protein Negative (Negative); Urine Red Blood Cell Trace(0-2/hpf) (Absent); Urine Specific Gravity 1.006 (1.010-1.030); Urine Urobilinogen Negative (Negative); Urine White Blood Cell Trace(0-5/hpf) (Absent)
[2019-02-03] MEDS ORDERED: Iohexol 350* (CONTRAST) 500 ML MDV IV ONE (16:14)
[2019-02-03] MEDS ORDERED: Acetaminophen TAB* 325 MG PO PRN (17:54)
[2019-02-03] MEDS ORDERED: Ondansetron INJ* 2 MG/ML VIAL IV PRN (17:54)
[2019-02-03] MEDS ORDERED: LORazepam TAB(*) 0.5 MG PO PRN (17:58)
[2019-02-03] MEDS: tiZANidine TAB* 2 MG PO SCH ×2 (20:52→21:06)
[2019-02-03] MEDS: Carbidopa/Levodop 25/100 MG TAB(*) PO SCH (20:52)
[2019-02-03] MEDS: Pantoprazole TAB * 40 MG TAB PO SCH (20:52)
[2019-02-03] MEDS: diPHENhydraMINE PO* 50 MG PO PRN (20:52)
[2019-02-03] MEDS: Metoprolol Tartrate TAB* 25 MG PO SCH (20:53)
[2019-02-03] MEDS: Heparin VIAL(*) 5000 UNITS/ML VIAL (FIVE THOUSAND) SUBCUT SCH (22:09)
--- NOTE | 2019-02-04 00:35 | HP ---
CC: Dr. Parry; Dr. Leonid Centeno, Neurology; Dr. Padilla HISTORY AND PHYSICAL: DATE OF ADMISSION: 02/03/19 PRIMARY CARE PROVIDER: Dr. Padilla. CHIEF COMPLAINT: Dizziness. HISTORY OF PRESENT ILLNESS: Mrs. Salazar is a 74-year-old female with Parkinson's who stated that she woke up in the middle of the night, feeling very thirsty. She went to go to the bathroom and have a glass of water. During that time, she noted that she was dizzy. She describes dizzy as being unstea dy on her feet as if she were on a ship, but she also stated that she felt dizzy when she was lying d own. Also felt "swingy." She denies problems with vertigo per se and she denies specifically the alexus m spinning or visual disturbances. She stated that she woke up multiple times during the day feeling like she was thirsty and she needed to drink several glasses of water. She stated she drank approxi mately 8 large cups of water during the nighttime. She also felt nauseated and she attempted to retc h. She stated that due to her gastric bypass surgery she cannot really vomit. She also noted that t he abdomen was very distended and whenever she would have fluctuance, she would also have a hard jj l movement with it, which is not usual for her. With all those symptoms, she came into the ED for isabel luation. Here, she felt that she was leaning to the left when she was walking and she still feels li ke she is on a ship despite 2 L of intravenous hydration and observation in the ED. The ED provider notified Dr. Centeno, who recommended for the patient to be observed to rule out posterior circulation C VA. Of note, her CT angiogram of the head and neck was unremarkable. The patient is going to be placed on overnight observation as mentioned above. PAST MEDICAL HISTORY: 1. History of peptic ulcer disease, status post Jared fundoplication in . 2. History of arthritis. 3. Depression. 4. Osteoporosis. 5. 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 6. History of essential tremor. 7. History of Parkinson disease. 8. History of right shoulder surgery, arthroscopy x2. 9. Gastric bypass in 2007. 10. History of exploratory laparotomy with lysis of adhesions in 2011 and 2014. 11. Tonsillectomy. 12. Cholecystectomy. 13. Hysterectomy. 14. Oophorectomy. MEDICATIONS: At home include: 1. Tizanidine 4 mg at bedtime. 2. Percocet 1 tablet every 6 hours p.r.n. 3. Benadryl 50 mg at bedtime p.r.n. 4. Vitamin B complex 1 capsule a day. 5. Vitamin A 8000 units daily. 6. Raloxifene 60 mg daily. 7. Metamucil daily. 8. Mirabegron 1 tablet daily. 9. Omeprazole 20 mg b.i.d. 10. Multivitamin 1 tablet daily. 11. Metoprolol tartrate 25 mg b.i.d. 12. Magnesium oxide with vitamin D 1 tablet daily. 13. Lorazepam 0.5 mg every 8 hours p.r.n. 14. Glucosamine 1 capsule daily. 15. Colace 200 mg daily. 16. Cymbalta 60 mg daily. 17. Vitamin B12 at 1000 mcg daily. 18. Estrogen vaginal cream 3 times a week. 19. Sinemet 25 mg/100 mg 1 tablet 3 times a day. 20. Calcium citrate with vitamin D 2 tablets daily. 21. Baclofen 5 mg q.a.m. 22. Compazine on a p.r.n. basis. ALLERGIES: Include NONSTEROIDAL ANTIINFLAMMATORY MEDICATIONS due to her history of ulcers and QUINOL ONES. FAMILY HISTORY: Mother in her 80s of colon cancer. Father in his 80s of leukemia. The dimitrios guo also has a brother who has leukemia. SOCIAL HISTORY: The patient quit smoking over 50 years ago. Denies any alcohol or drug use. 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 She is a and lives with her daughter, who is her healthcare proxy an d works at [employer]. Her daughter's name is Lima Salazar. REVIEW OF SYSTEMS: Please see history of present illness. In addition to the above mentioned, the carline parr stated that she had leg cramps last night more so than usual and it happens often for this pat ient, but once again was more pronounced last night. Currently, she denies any nausea. She still caputo s a distended abdomen, but she stated that she has lots of flatulence with small stool with it. She still feels "dizzy." The remaining 12 systems were reviewed with the patient and were, otherwise, negative. PHYSICAL EXAMINATION GENERAL: The patient is a very pleasant 74-year-old female who is in no acute distress. She is aler t, awake, and oriented x3. VITAL SIGNS: Blood pressure 108/79, heart rate of 96 and regular, respiratory rate 18, oxygen satur ation 98% on room air, temperature 99.5. HEENT: Head atraumatic, normocephalic. Eyes, pupils are equal and reactive to light and accommodati on. Oropharynx is clear. Mucosa moist. NECK: Supple. No JVD. No bruits bilaterally. RESPIRATORY: Clear to auscultation bilaterally. CARDIOVASCULAR: Regular rate and rhythm. No murmurs. ABDOMEN: Soft, nontender. Bowel sounds are present in all 4 quadrants. Distended, tympanic to percu ssion. EXTREMITIES: There is trace nonpitting pedal edema bilaterally. Pulses are 2+ bilaterally. There i s no clubbing or cyanosis. NEUROLOGIC EVALUATION: The patient has tremor, generalized, in all extremities; more so in bilateral upper extremities and intentional. Cranial nerves II through XII grossly intact. Motor strength is 5/5 bilaterally. The patient's gait is mildly unsteady. I did not notice patient leaning to one si de more than the other. Qyxpyn-dk-egkd is not dysmetric bilaterally and yege-js-gudt is somewhat dist orted due to patient's tremor, but is not dysmetric. The patient's gait is wide and impaired due to her baseline tremor. Speech is clear. PSYCHIATRIC EVALUATION: Oriented x3 with no evidence of anxiety or depression. SKIN: On evaluation of the skin, the patient has ecchymotic areas and eschar- covered excoriations o n bilateral forearms. DIAGNOSTIC STUDIES/LAB DATA: Laboratory data showed white blood cell count of 9.0, hemoglobin of 14 .5, hematocrit of 43, and platelets of 210. Sodium 136, potassium 3.2, chloride 105, carbon dioxide 21, BUN 17, and creatinine 0.5. Liver functi ons unremarkable. Troponin of 0, C-reactive protein of 25.1. Urinalysis positive for fresh blood, trace nitrites. Negative for bacteria, rbc's, and white blood c ells. CT angiogram of the head, impression: "No internal carotid artery stenosis. No aneurysms, vascular malformations, occlusion, or stenosis of the visualized intracranial circulation." CTA of the neck showed no stenosis of either of the carotids. Brain CT, impression: "No acute intracranial pathology." Patient's chest x-ray, impression: "Low lung volumes with linear atelectasis of the right lung base. " Patient's EKG showed normal S1, S2 with a heart rate of 88 beats per minute with negative T waves in V2 to V6, most pronounced in the V2 to V4 leads. Comparing with prior EKG from 2013, the T-wave inve rsion was also present at that point. ASSESSMENT AND PLAN: 1. Dizziness, to rule out transient ischemic attack/cerebrovascular accident. At this point, the dimitrios guo had multiple other symptoms including polydipsia, retching, increased abdominal distention and flatulence with episodes of bowel incontinence. At this point, it is possible that she had a posterio r circulation cerebrovascular accident versus vertigo, but it is also possible that overall she had s ymptoms of maybe viral gastrointestinal infection. At this point, the patient is going to be observe d on telemetry monitored bed with neuro checks every 4 hours to evaluate for the possibility of cereb rovascular accident. Echocardiogram with bubble study is going to be obtained in the morning and we will ask Dr. Centeno to see the patient in consultation. 2. The patient appeared dehydrated in the emergency department and she received 2 L of intravenous fl uid. Currently, she is euvolemic and I will not continue any more IV fluids. 3. For her Parkinson's, her Sinemet is going to be continued. 4. For her unsteady gait, apart from evaluating by a neurologist as mentioned above, we will [facility] the patient in consultation. 5. The patient's code status is full. Her surrogate is her daughter, as mentioned above. TIME SPENT: Approximately 65 minutes were spent on the admission of this patient, more than half minerva t time was spent [id number] with the patient during the interview and physical exam. [id number]/[facility] #: [id number]
[2019-02-04] MEDS: oxyCODONE/Acetamin 5/325 MG* TAB PO PRN ×2 (04:21→21:20)
[2019-02-04] MEDS: Heparin VIAL(*) 5000 UNITS/ML VIAL (FIVE THOUSAND) SUBCUT SCH ×3 (05:46→21:19)
[2019-02-04 05:50] LABS: ABS Basophils 0 10^3/ul (0-0.2); ABS Eosinophils 0.1 10^3/ul (0-0.6); ABS Lymphocytes 0.6 10^3/ul (1.0-4.8); ABS Monocytes 0.3 10^3/ul (0-0.8); ABS Neutrophils 3.8 10^3/ul (1.5-7.7); ABS Nucleated RBC 0 10^3/ul; Eosinophil % 1.1 %; Hematocrit 38 % (33-41); Hemoglobin 12.8 g/dL (12.0-16.0); Lymphocyte % 12.6 %; Mean Corpuscular HGB Conc 34 g/dL (31-36); Mean Corpuscular Hemoglobin 33 pg (27-31); Mean Corpuscular Volume 97 fL (80-97); Mean Platelet Volume 7.5 fL (7.4-10.4); Nucleated Red Blood Cells % 0.1; Platelet Count 175 10^3/uL (150-450); Red Blood Count 3.93 10^6 /uL (3.70-4.87); Red Cell Distribution Width 13 % (10.5-15); White Blood Count 4.8 10^3/uL (3.5-10.8)
[2019-02-04 06:07] LABS: BUN/Creatinine Ratio 24.4 (8-20); Calcium 7.9 mg/dL (8.6-10.3); EGFR African American 182.5 (>60); EGFR Non-African American 150.8 (>60)
[2019-02-04 06:12] LABS: Potassium 2.7 mmol/L (3.5-5.0)
[2019-02-04] MEDS: Carbidopa/Levodop 25/100 MG TAB(*) PO SCH ×4 (07:12→16:38)
[2019-02-04] MEDS: KCL 20 MEQ/100 ML IVPREMIX* 20 MEQ/100 ML BAG IV SCH ×2 (07:12→09:37)
[2019-02-04] MEDS: Metoprolol Tartrate TAB* 25 MG PO SCH ×3 (09:29→21:20)
[2019-02-04] MEDS: Aspirin 81 mg CHEW TAB* 81 MG TAB.CHEW PO SCH (09:38)
[2019-02-04] MEDS: Pantoprazole TAB * 40 MG TAB PO SCH ×2 (09:38→21:20)
[2019-02-04] MEDS: Cyanocobalamin TAB* 500 MCG PO SCH (09:38)
[2019-02-04] MEDS: Baclofen TAB* 10 MG PO SCH (09:38)
[2019-02-04] MEDS: Potassium Chlor TAB* 20 MEQ TAB.ER PO SCH ×2 (09:38→21:19)
[2019-02-04] MEDS: Magnesium Oxide TAB* 400 MG PO SCH (09:38)
[2019-02-04] MEDS: DULoxetine DR CAP* 60 MG CAP.DR PO SCH (09:38)
[2019-02-04] MEDS: Docusate CAP* 100 MG PO SCH (09:41)
[2019-02-04] MEDS: NS 0.9% w/ 20 Meq KCL 1000 ML* 1,000 ML IV SCH ×2 (10:33→21:25)
--- NOTE | 2019-02-04 10:37 | PN ---
Subjective Date of Service: 02/04/19 Interval History: Pt developed diarrhea this AM. Dizziness "almost resolved". Denies nausea/abd pain Objective Active Medications: Acetaminophen (Tylenol Tab*) 650 mg PO Q4H PRN PRN Reason: FEVER/PAIN Aspirin (Aspirin 81 Mg Chew Tab*) 81 mg PO DAILY [facility] Last Admin: 02/04/19 09:38 Dose: 81 mg Baclofen (Lioresal Tab*) 5 mg PO DAILY [facility] Last Admin: 02/04/19 09:38 Dose: 5 mg Carbidopa/Levodopa (Sinemet 25/100 Tab(*)) 1 tab PO TID [facility] Last Admin: 02/04/19 07:12 Dose: 1 tab Cyanocobalamin (Vitamin B12 Tab*) 1,000 mcg PO DAILY [facility] Last Admin: 02/04/19 09:38 Dose: 1,000 mcg Diphenhydramine HCl (Benadryl Po*) 50 mg PO BEDTIME PRN PRN Reason: INSOMNIA Last Admin: 02/03/19 20:52 Dose: 50 mg Docusate Sodium (Colace Cap*) 200 mg PO DAILY [facility] Last Admin: 02/04/19 09:41 Dose: Not Given Duloxetine HCl (Cymbalta Cap*) 60 mg PO DAILY [facility] Last Admin: 02/04/19 09:38 Dose: 60 mg Heparin Sodium (Porcine) (Heparin Vial(*)) 5,000 units SUBCUT Q8HR [facility] Last Admin: 02/04/19 05:46 Dose: 5,000 units Potassium Chloride (Potassium Chloride 20 Meq/100 Ml Ivpremix*) 20 meq in 100 mls @ 50 mls/hr IV Q2H [facility] Stop: 02/04/19 10:59 Last Admin: 02/04/19 09:37 Dose: 50 mls/hr Potassium Chloride/Sodium Chloride (Ns 0.9% W/ 20 Meq Kcl 1000 Ml*) 1,000 mls @ 75 mls/hr IV PER RATE [facility] Lorazepam (Ativan Tab(*)) 0.5 mg PO Q8H PRN PRN Reason: ANXIETY Magnesium Oxide (Magox 400 Tab*) 400 mg PO DAILY [facility] Last Admin: 02/04/19 09:38 Dose: 400 mg Metoprolol Tartrate (Lopressor Tab*) 25 mg PO BID [facility] Last Admin: 02/04/19 09:30 Dose: Not Given Ondansetron HCl (Zofran Inj*) 4 mg IV Q4H PRN PRN Reason: NAUSEA/VOMITING Oxycodone/Acetaminophen (Percocet 5/325 Tab*) 1 tab PO Q6H PRN PRN Reason: PAIN Last Admin: 02/04/19 04:21 Dose: 1 tab Pantoprazole Sodium (Protonix Tab*) 40 mg PO BID [facility] Last Admin: 02/04/19 09:38 Dose: 40 mg Potassium Chloride (Klor Con Er Tab*) 20 meq PO BID [facility] Last Admin: 02/04/19 09:38 Dose: 20 meq Tizanidine HCl (Zanaflex Tab*) 4 mg PO BEDTIME [facility] Last Admin: 02/03/19 21:06 Dose: Not Given Vital Signs - 8 hr 02/04/19 02/04/19 02/04/19 03:32 04:21 06:54 Temperature 97.9 F Pulse Rate 78 Respiratory 20 18 20 Rate Blood Pressure 106/59 (mmHg) O2 Sat by Pulse 94 Oximetry 02/04/19 02/04/19 07:44 07:52 Temperature 99.1 F Pulse Rate 78 Respiratory 20 Rate Blood Pressure 94/51 100/62 (mmHg) O2 Sat by Pulse 94 Oximetry Oxygen Devices in Use Now: None Appearance: 74 yo f in nAD, AAOx3 Eyes: No Scleral Icterus, PERRLA Ears/Nose/Mouth/Throat: NL Teeth, Lips, Gums, Mucous Membranes Moist Neck: NL Appearance and Movements; NL JVP, Trachea Midline Respiratory: Symmetrical Chest Expansion and Respiratory Effort, Clear to Auscultation Cardiovascular: NL Sounds; No Murmurs; No JVD, RRR Abdominal: NL Sounds; No Tenderness; No Distention Lymphatic: No Cervical Adenopathy Extremities: No Edema, No Clubbing, Cyanosis Skin: No Rash or Ulcers, No Nodules or Sclerosis Neurological: Alert and Oriented x 3, NL Muscle Strength and Tone, - - gait improved from admnission Result Diagrams: 02/04/19 05:35 02/04/19 05:35 Assess/Plan/Problems-Billing Assessment: 74 yo f with h/o Jared fundoplication, gastric bypass, Parkinson's presented with sudden onset of dizziness, retching and drinking a lot of water. Placed on OBV to eval for CVA. This AM developed diarrhea - Patient Problems (1) Dizziness Comment: likely a symptom of gastroenteritis that developed when pt was nauseated and couldn't vomit due to her h/o gastric surgeries in the past. for now will keep on ASA 81 mg and cont neuro consult (2) Gastroenteritis Comment: developed diarrhea today, nausea resolved. Soft SBP's this aM. will start gentle IVF (3) Parkinsons disease Comment: controlled, cont Sinemet (4) HTN (hypertension) Comment: SBP low normal will start IVF. Place lopressor on hold parameters (5) Hypokalemia Comment: replacing PO and IV (6) DVT prophylaxis Comment: HSQ Status and Disposition: OBV
[2019-02-04] MEDS ORDERED: Magnesium Sulfate 1 GM IV* 1 GM/100 ML BAG IV ONE (15:27)
[2019-02-04] MEDS ORDERED: KCL 20 MEQ/100 ML IVPREMIX* 20 MEQ/100 ML BAG IV ONE (15:27)
[2019-02-04] MEDS ORDERED: cefTRIAXone(*) 1 GM in NS 0.9% 50 ML* 50 ML IVPB SCH (16:00)
--- NOTE | 2019-02-04 18:44 | CONS ---
CC: Dr. Padilla; Dr. Parry * CONSULTATION REPORT: DATE OF CONSULT: 02/04/19 PRIMARY CARE PHYSICIAN: Dr. Padilla. TREATING NEUROLOGIST: Dr. Parry. REASON FOR CONSULTATION: Acute onset of dizziness. HISTORY OF PRESENT ILLNESS: Ms. Salazar is a very nice 74-year-old female who follows with Dr. Parry as an outpatient for a history of Parkinson disease, essential tremor, and some spasmodic torticollis. She was last seen by Dr. Parry on 11/27/18; I did review her outpatient notes. The patient at baseline is on carbidopa/levodopa 25/100 three times a day. She also has a history of peptic ulcer disease, status post Jared fundoplication in the , depression, arthritis, history of poliomyelitis when she was younger, gastric bypass in 2007, lysis of adhesions in 2011 and 2014, tonsillectomy, cholecystectomy, and hysterectomy, who was in her usual state of health when she woke up at around 2:00 a.m. on 02/03/19. At that time, she described feeling very dizzy. She states that she usually gets up about once a night to go to the bathroom, but when she got up this time, she felt very unsteady on her feet. She felt dizzy and felt like the room was moving some. She denied any maría vertigo at that time. She did have some nausea and she felt that she was listing to the left. Of note, she does describe listing to the left at her baseline before this started, but she felt like she was listing to the left more. She stated that she was extremely thirsty at that time. She drank multiple cups of water during that night. She also felt nauseated, but she states because of her Jared fundoplication, she is unable to vomit. She notes having some fever up to 103 and she felt that her abdomen was extremely distended. She was also having some constipation. When she came to the ED, she was noted to have some difficulty walking. She felt that her tremor was worse and she noted that she was listing more towards the left. She describes feeling like she was on a ship at that time. She did receive some IV fluids, but did not improve much after 2 L. At that time, I spoke with Dr. Manuel Lopez, who was concerned about her ongoing symptoms. In the ER, she had: --CT of the head reviewed, which showed no acute stroke. Ventricles appeared normal in size. --CTA as well, which showed no carotid stenosis, no aneurysms or intracranial stenosis. The vertebral arteries were patent without stenosis. --Echocardiogram done as well, which showed an ejection fraction of 60% to 65%, normal left ventricular function, abnormal left ventricular diastolic filling observed, mildly dilated atrium, [id number] regurg of the mitral valve, mild tricuspid regurg, mild dilatation of the aortic root. The patent foramen ovale is not demonstrated by color Doppler or agitated saline. Based on the concern for a possible posterior circulation stroke, she was started on an aspirin; she does not normally take that. Overnight, she has developed significant watery diarrhea with some abdominal pain, although she does feel better. She states that her dizziness is much better and she feels more stable on her feet. In addition, she has been running fevers, currently low-grade, 99.4, but has been up to 102.1. She states that she continues to feel nauseated at times, but that has improved as well. PAST MEDICAL HISTORY: Her past medical history is noted above. MEDICATIONS: She is on a long list of medications. Home medications per review of her outpatient chart include: 1. Baclofen 2 mg p.o. twice a day. 2. Carbidopa/levodopa 25/100 one tablet 3 times a day at breakfast, lunch, and dinner and one at 7. 3. Evista 60 mg q. day. 4. Metoprolol 25 mg p.o. b.i.d. 5. Omeprazole 20 mg b.i.d. 6. Vitamin A. 7. Vitamin B complex. 8. Multivitamin. 9. Benadryl 25 mg 2 pills at night for sleep. 10. Colace 100 mg 2 pills daily. 11. Vitamin B12 1000 mcg daily. 12. Duloxetine 60 mg a day. 13. Lorazepam 0.5 mg q.8 hours p.r.n. 14. Oxycodone/acetaminophen 5/325 every 6 hours as needed for pain. 15. Prochlorperazine 10 mg 6 hours as needed nausea. 16. Glucosamine. 17. CBD oil. 18. Tizanidine. 19. Myrbetriq 25 mg once a day. ALLERGIES: Her allergies include allergies to QUINOLONES, NONSTEROIDALS due to history of ulcers. FAMILY HISTORY: Significant for mother with colon cancer, father with leukemia , and a brother with leukemia. SOCIAL HISTORY: Previous tobacco use, quit about 50 years ago. No drug or alcohol use. 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 Her daughter works at [employer]. REVIEW OF SYSTEMS: Her review of systems in 14 organ systems as noted above, otherwise negative. She did notice some leg cramps on admission. PHYSICAL EXAMINATION: Vital Signs: This morning temperature 99.5; her heart rate in 90s; respiratory rate in the 18 to 23 range; O2 sats 89% to 98%; blood pressures have been low, 108/79 to 115/69 to 138/72. In general, she is a well-nourished, well-developed female. She is sitting in a chair beside her bed, watching TV. She is very pleasant, well dressed, well groomed. HEENT: She is normocephalic, atraumatic. Sclerae are anicteric. Mucous membranes are slightly dry. Oropharynx is clear. Nares are patent. Neck is supple. No thyromegaly, no carotid bruits. Chest: Clear to auscultation bilaterally. Cardiovascular is regular rate and rhythm. Abdomen is distended, nontender. Extremities: There is no significant cyanosis. Some mild edema of the lower extremities, nonpitting. Neurologic exam: she is awake, alert, and oriented x3. Her speech is fluent. There is no dysarthria. Repetition is intact. Recall of recent and remote events is intact. Vocabulary is intact. Her mood is concerned. Affect, mood congruent. Cranial nerves II through XII: Pupils are equally round and reactive to light and accommodation. Extraocular muscles are intact. She has good upward and side-to- side gaze. Visual betancur are full to confrontation. Her facial sensation is intact to light touch. Face is symmetric. Hearing is intact bilaterally. Oropharynx: Her palate raises symmetrically. Her tongue is midline. Sternocleidomastoid and trapezius are both 5/5. Motor exam: She has good strength, 5/5 throughout with some mild intention tremor bilaterally in the upper extremities. I saw no resting tremor today. There was no drift appreciated. Sensation was intact to light touch and pinprick in the upper and lower extremities. DTRs were 1+ and symmetric in the upper extremities bilaterally, 1+ at the patellae bilaterally, absent at the ankles, equivocal Babinski's. Finger-to- nose and rapid alternating movements were significant for a mild tremor. She had no resting tremor. Her tone was normal. She had some mildly decreased facial expression, but her blink was normal. She had no hypophonia on examination. Her rapid alternating movements were normal. Gait was cautious but steady, slightly wide base, there was no shuffle. DIAGNOSTIC STUDIES/LAB DATA: Lab work includes a white count of 4.8, absolute lymphocytes of 0.6, INR of 0.99. Sodium of 138, potassium of 2.7 this morning. Creatinine is 0.41, BUN/creatinine ratio of 24.4. Glucose of 110. Lactic acid is 2.3 on admission. Calcium of 7.9. C-reactive protein of 25.14. Urine showed 2+ blood, positive nitrite, 1+ bacteria. Studies as noted above. ASSESSMENT AND PLAN: Ms. Salazar is a 74-year-old female with a known history of Parkinson disease and essential tremor, followed by Dr. Parry. She has a history of multiple medical issues including peptic ulcer disease, status post Jared fundoplication in the as well as a bypass surgery in 2007, a history of prior poliomyelitis with some curvature of the T-spine, depression. She notes that she lists to the left at baseline. She does take carbidopa/levodopa and does not normally have lightheadedness. She presented to the hospital after waking up at 2:00 a.m. on the morning of admission with dizziness, extremely thirsty, bloating in her stomach, felt nauseated, constipation, and some fevers and subsequently developed watery diarrhea, and the suspicion is that she is suffering from gastroenteritis, likely viral in nature. I suspect that her worsening dizziness and unsteadiness was related to dehydration and infection. My suspicion for a posterior circulation stroke is low and she has had a CT angiogram which shows no stenosis. She has had an echocardiogram which shows no obvious abnormalities and a CT which showed no major acute changes. I do think we can complete the workup with MRI of her head tomorrow and assuming it shows no stroke, I do not see why she should be on an aspirin. If the MRI is negative, I would stop her aspirin given her history of peptic ulcer disease. If it is positive, certainly we will need to consider additional workup and treatment, but I suspect that her symptoms will improve; in fact, they already have improved with hydration and rest. We will evaluate her walking with physical therapy and treat accordingly. Continue conservative management for her GI issues. I am not going to make any changes to her Sinemet. I know that Dr. Parry has been working with her and was considering some treatment for essential tremor, but this is something that can be considered on an outpatient basis. She did have some hypokalemia today, which could be causing some muscle cramping. That is to be replaced. I will continue to follow her and make further recommendations as necessary, but if her MRI of the brain is negative tomorrow, I think that she can go home on her normal Parkinson regimen and follow up with Dr. Parry as an outpatient. I will make further recommendations as necessary. Thank you for the opportunity to participate in the care of this very interesting patient. [id number]/[facility] #: [id number] JAKY
[2019-02-04] MEDS: diPHENhydraMINE PO* 50 MG PO PRN (21:20)
[2019-02-04] MEDS: tiZANidine TAB* 2 MG PO SCH (21:20)
[2019-02-05] MEDS: oxyCODONE/Acetamin 5/325 MG* TAB PO PRN (04:32)
[2019-02-05] MEDS: Heparin VIAL(*) 5000 UNITS/ML VIAL (FIVE THOUSAND) SUBCUT SCH (05:43)
[2019-02-05 06:33] LABS: BUN/Creatinine Ratio 14.9 (8-20); Calcium 7.9 mg/dL (8.6-10.3); EGFR African American 155.9 (>60); EGFR Non-African American 128.8 (>60); Magnesium 1.9 mg/dL (1.9-2.7); Potassium 4.1 mmol/L (3.5-5.0)
[2019-02-05] MEDS: Carbidopa/Levodop 25/100 MG TAB(*) PO SCH ×2 (07:27→11:25)
--- NOTE | 2019-02-05 08:11 | PN ---
Subjective Date of Service: 02/05/19 Length of Stay: 2 Days Neurology is following for history of dizziness, lightheadedness in the setting of GI illness and PD Interval History: "I feel better." Overnight, no new issues. She walked to the bathroom without lightheadedness. She denies any further diarrhea. She did eat some ice cream last night. She does have the urge to urinate. BPs were low overnight but asymptomatic. Her blood pressure medication was adjusted. She notes having a jaw tremor which is relatively new but has been there at home as well. Otherwise, she is feeling ok. Anxious to go home. MRI pending Objective Active Medications: Acetaminophen (Tylenol Tab*) 650 mg PO Q4H PRN PRN Reason: FEVER/PAIN Last Admin: 02/04/19 11:43 Dose: 650 mg Aspirin (Aspirin 81 Mg Chew Tab*) 81 mg PO DAILY COUNTS INCLUDE 234 BEDS AT THE [facility] Last Admin: 02/04/19 09:38 Dose: 81 mg Baclofen (Lioresal Tab*) 5 mg PO DAILY COUNTS INCLUDE 234 BEDS AT THE [facility] Last Admin: 02/04/19 09:38 Dose: 5 mg Carbidopa/Levodopa (Sinemet 25/100 Tab(*)) 1 tab PO TID AC COUNTS INCLUDE 234 BEDS AT THE [facility] Last Admin: 02/05/19 07:27 Dose: 1 tab Cyanocobalamin (Vitamin B12 Tab*) 1,000 mcg PO DAILY COUNTS INCLUDE 234 BEDS AT THE [facility] Last Admin: 02/04/19 09:38 Dose: 1,000 mcg Diphenhydramine HCl (Benadryl Po*) 50 mg PO BEDTIME PRN PRN Reason: INSOMNIA Last Admin: 02/04/19 21:20 Dose: 50 mg Docusate Sodium (Colace Cap*) 200 mg PO DAILY COUNTS INCLUDE 234 BEDS AT THE [facility] Last Admin: 02/04/19 09:41 Dose: Not Given Duloxetine HCl (Cymbalta Cap*) 60 mg PO DAILY COUNTS INCLUDE 234 BEDS AT THE [facility] Last Admin: 02/04/19 09:38 Dose: 60 mg Heparin Sodium (Porcine) (Heparin Vial(*)) 5,000 units SUBCUT Q8HR COUNTS INCLUDE 234 BEDS AT THE [facility] Last Admin: 02/05/19 05:43 Dose: 5,000 units Ceftriaxone Sodium 1 gm/ (Sodium Chloride) 50 mls @ 200 mls/hr IVPB Q24H COUNTS INCLUDE 234 BEDS AT THE [facility] Last Admin: 02/04/19 16:10 Dose: 200 mls/hr Lorazepam (Ativan Tab(*)) 0.5 mg PO Q8H PRN PRN Reason: ANXIETY Last Admin: 02/04/19 21:24 Dose: 0.5 mg Magnesium Oxide (Magox 400 Tab*) 400 mg PO DAILY COUNTS INCLUDE 234 BEDS AT THE [facility] Last Admin: 02/04/19 09:38 Dose: 400 mg Metoprolol Tartrate (Lopressor Tab*) 12.5 mg PO BID COUNTS INCLUDE 234 BEDS AT THE [facility] Ondansetron HCl (Zofran Inj*) 4 mg IV Q4H PRN PRN Reason: NAUSEA/VOMITING Oxycodone/Acetaminophen (Percocet 5/325 Tab*) 1 tab PO Q6H PRN PRN Reason: PAIN Last Admin: 02/05/19 04:32 Dose: 1 tab Pantoprazole Sodium (Protonix Tab*) 40 mg PO BID COUNTS INCLUDE 234 BEDS AT THE [facility] Last Admin: 02/04/19 21:20 Dose: 40 mg Potassium Chloride (Klor Con Er Tab*) 20 meq PO BID COUNTS INCLUDE 234 BEDS AT THE [facility] Last Admin: 02/04/19 21:19 Dose: 20 meq Tizanidine HCl (Zanaflex Tab*) 4 mg PO BEDTIME COUNTS INCLUDE 234 BEDS AT THE [facility] Last Admin: 02/04/19 21:20 Dose: 4 mg Vital Signs 02/04/19 02/04/19 02/04/19 11:37 14:26 15:10 Temperature 99.4 F 97.1 F 97.7 F Pulse Rate 88 91 87 Respiratory 16 22 16 Rate Blood Pressure 124/69 110/70 97/62 (mmHg) O2 Sat by Pulse 98 95 99 Oximetry 02/04/19 02/04/19 02/04/19 19:16 20:00 21:20 Temperature 98.4 F Pulse Rate 83 Respiratory 18 18 Rate Blood Pressure 123/72 (mmHg) O2 Sat by Pulse 91 91 Oximetry 02/04/19 02/04/19 02/04/19 21:24 22:54 23:02 Temperature 98.5 F Pulse Rate 65 Respiratory 18 16 Rate Blood Pressure 82/48 88/48 (mmHg) O2 Sat by Pulse 94 Oximetry 02/04/19 02/04/19 02/05/19 23:56 23:57 00:43 Temperature Pulse Rate Respiratory 15 15 Rate Blood Pressure 98/60 (mmHg) O2 Sat by Pulse Oximetry 02/05/19 02/05/19 02/05/19 03:18 03:34 04:32 Temperature 98.7 F Pulse Rate 64 Respiratory 16 18 Rate Blood Pressure 84/49 98/62 (mmHg) O2 Sat by Pulse 96 Oximetry 02/05/19 02/05/19 06:40 07:29 Temperature 97.6 F Pulse Rate 75 Respiratory 16 16 Rate Blood Pressure 113/69 (mmHg) O2 Sat by Pulse 99 Oximetry Intake and Output Last 24 Hours 02/03/19 02/04/19 02/05/19 02/06/19 06:59 06:59 06:59 06:59 Intake Total 1999 1908 Balance 1999 1908 Weight 134 lb 6.4 oz Intake: IV Fluids 1999 1189 Oral 0 720 Other: Estimated Void Medium Medium # Bowel Movements 1 0 Estimated Stool Amount Large # Voids 2 2 Oxygen Devices in Use Now: None Neurology Exam: General: Well nourished, well developed, and in no acute distress, lying in bed HEENT: Normocephalic/atraumatic, sclera anicteric, mucous membranes moist Neck: some tightness Chest: Clear to auscultation bilaterally Cardiovascular: Regular rate and rhythm without murmurs, rubs, gallops Abdomen: Soft, non-tender/non-distended Extremities: No clubbing, cyanosis, or edema Neurological Findings: Speech: fluent without dysarthria, repetition intact, mild hypophonia Mildly decreased facial expression, normal blink Cranial Nerve: PERRL, EOM intact, VFF, no nystagmus, face symmetric bilaterally , facial sensation intact, hearing intact to finger rub bilaterally, palate elevates symmetrically, tongue midline Motor: 5/5 throughout with normal tone. No cogwheeling Sensation: intact to LT/PP bilaterally upper and lower extremities Deep Tendon Reflex: 1+ symmetric in the upper/lower extremities DOUG intact. Mild intention and postural tremors bilateral upper extremities. Jaw tremor, mild in nature. No lip tremor Result Diagrams: 02/04/19 05:35 02/05/19 05:40 Microbiology and Other Data: Microbiology 02/03/19 14:38 Urine Culture - Preliminary Urine Escherichia Coli 02/03/19 13:32 Aerobic Blood Culture - Preliminary Blood Venous No Growth Day 1 Anaerobic Blood Culture - Preliminary No Growth Day 1 02/03/19 13:27 Aerobic Blood Culture - Preliminary Blood Venous No Growth Day 1 Anaerobic Blood Culture - Preliminary No Growth Day 1 Assessment/Plan Assessment: 74 yo with a history of PD and ET followed by Dr. Parry, on low dose Sinemet with onset of dizziness, lightheadedness, extreme thirst with nausea, subsequent profuse diarrhea. She continues to improve overnight. Feels better this am, no new issues. Lightheadedness and gait instability have improved. She did have some hypotension overnight, asymptomatic. Stroke workup at this point negative. Dizziness: --unlikely TIA/stroke but getting MRI this am to rule out acute event. Given the length of time of symptoms, my suspicion for TIA is low. Due to her history of PUD, I would recommend stopping aspirin IF her MRI is NEGATIVE for acute stroke. Workup at this point for stroke is negative. --Likely was caused by acute GI illness with dehydration--Improving --BPs have been low overnight, BP med adjustment as necessary --Encourage hydration --There may be a component related to PD, consider MSA. This is something Dr. Parry can follow as an outpatient. For persistent hypotension or orthostatic hypotension, she may need blood pressure augmentation but I would work on adjusting BP meds first. Perhaps and HUMBLE rather than beta-rafa. PD: --Continue Sinemet unchanged. This appears to be stable --Follow up with Dr. Parry next week for Botox. She can address medication changes then --Botox for dystonia as outpatient --Consider PD as a possible fci cause of dizziness and lightheadedness as well. ET: On beta-rafa. No real improvement. Dr. Parry will follow as outpatient. Mild UTI: On antibiotics. May be cause of her urgency. Hypokalemia: Now resolved after replacement. May have been contributing to some muscle cramping which is better. She will likely go home today, assuming MRI negative and she is feeling better. She has an appointment with Dr. Parry next week.
[2019-02-05] MEDS ORDERED: Metoprolol Tartrate TAB* 25 MG PO SCH (09:00)
[2019-02-05] MEDS: Baclofen TAB* 10 MG PO SCH (10:28)
[2019-02-05] MEDS: Magnesium Oxide TAB* 400 MG PO SCH (10:28)
[2019-02-05] MEDS: Aspirin 81 mg CHEW TAB* 81 MG TAB.CHEW PO SCH (10:28)
[2019-02-05] MEDS: Potassium Chlor TAB* 20 MEQ TAB.ER PO SCH (10:29)
[2019-02-05] MEDS: DULoxetine DR CAP* 60 MG CAP.DR PO SCH (10:29)
[2019-02-05] MEDS: Cyanocobalamin TAB* 500 MCG PO SCH (10:29)
[2019-02-05] MEDS: Docusate CAP* 100 MG PO SCH (10:30)
[2019-02-05] MEDS: Pantoprazole TAB * 40 MG TAB PO SCH (10:30)
[2019-02-05 10:36] VITALS: BP 137/68
--- NOTE | 2019-02-05 15:33 | DS ---
CC: Dr. Padilla; Dr. Centeno; Dr. Parry DISCHARGE SUMMARY: DATE OF ADMISSION: 02/03/19 DATE OF DISCHARGE: 02/05/19 PRIMARY CARE PROVIDER: Dr. Padilla. DISCHARGE DIAGNOSES: 1. Dizziness, likely a consequence of viral gastroenteritis. 2. Diarrhea due to above. 3. Escherichia coli urinary tract infection. SECONDARY DIAGNOSES: 1. History of peptic ulcer disease, status post Jared fundoplication in 1989. 2. History of arthritis. 3. Osteoporosis. 4. Depression. 5. History of poliomyelitis with abnormal curvature of the T-spine. 6. History of essential tremor. 7. History of Parkinson's. 8. Right shoulder surgery twice. 9. Gastric bypass in 2007. 10. History of exploratory laparotomy and lysis of adhesions twice. 11. Tonsillectomy. 12. Cholecystectomy. 13. Hysterectomy. MEDICATIONS: At discharge include cefdinir 300 mg twice a day for a total of remaining 2 days, to complete 3-day treatment for UTI. The remaining medications are unchanged and include: 1. Tizanidine 4 mg at bedtime. 2. Percocet 1 tablet every 6 hours p.r.n. 3. Benadryl 50 mg at bedtime p.r.n. 4. Vitamin B complex 1 capsule daily. 5. Vitamin A 8000 units daily. 6. Raloxifene 60 mg daily. 7. Metamucil on a daily basis. 8. Mirabegron 1 tablet daily. 9. Omeprazole 20 mg b.i.d. 10. Multivitamin 1 tablet daily. 11. Metoprolol tartrate 25 mg b.i.d. 12. Magnesium oxide with vitamin D 1 tablet daily. 13. Lorazepam 0.5 mg every 8 hours p.r.n. 14. Glucosamine 1 tablet daily. 15. Colace 200 mg daily. 16. Cymbalta 60 mg daily. 17. Vitamin B12 1000 mcg daily. 18. Estrogen vaginal cream 3 times a week. 19. Sinemet 25/100 mg 1 tablet 3 times a day. 20. Calcium citrate with vitamin D 2 tablets daily. 21. Baclofen 5 mg q.a.m. 22. Compazine on a p.r.n. basis. LABS/DIAGNOSTIC STUDIES: Laboratory data and studies performed during the hospital stay included: On 02/04/19, white blood cell count 4.8, hemoglobin of 12.9, hematocrit of 38, and platelets of 175. On 02/05/19, sodium of 140, potassium 4.1, chloride 115, carbon dioxide 21, BUN 7, creatinine 0.47. Magnesium of 1.9 on the day of discharge. Microbiology test, blood cultures that were negative and urine culture that were positive for 100,000 colonies of E. coli. Brain MRI obtained on 02/05/19, impression: "Stable nonspecific white matter changes. No restricted diffusion to suggest acute infarct." Head CTA obtained on 02/03/19, impression: "No internal carotid artery stenosis. No arterial or vascular malformation or occlusion, no stenosis of the visualized intracranial circulation. The patient also was noted to have no significant carotid artery stenosis on the CTA of the neck". CONSULTATIONS DURING THE HOSPITAL STAY: Included Dr. Leonid Centeno from Neurology. HOSPITALIZATION COURSE: Sidra Salazar is a 74-year-old female with a history of Parkinson's as well as gastric surgeries for gastric bypass and Jared fundoplication, who presented to the hospital complaining of dizziness that developed after an episode of retching in the middle of the night. The patient also at that point had several episodes of bowel incontinence. She was placed on overnight observation with differential that included posterior circulation CVA, but also question possibility of viral gastroenteritis with subsequent symptoms that caused dizziness. The patient was seen by Dr. Centeno in consultation who recommended MRI to rule out stroke, although it was suspected that patient really has symptoms of viral gastroenteritis. It was somewhat confirmed the very next day when patient started having perfuse diarrhea. The patient continued on intravenous hydration throughout her hospital stay. Her dizziness and unsteady gait resolved by the time of discharge. Her MRI was unremarkable. Incidentally so she was noted to have positive urine cultures for E. coli. Due to her symptoms of dizziness, it was possible that she may have been symptomatic of UTI when she presented. At this point, it was decided for the patient to have it treated, initially with ceftriaxone during the hospital stay and she is going to continue cefdinir for another couple of days to complete a 3 -day treatment. PHYSICAL EXAMINATION AT THE TIME OF DISCHARGE: Blood pressure 187/68, heart rate of 76 and regular, respiratory rate 18, oxygen saturation 95% on room air , temperature 96.7. General: The patient is a very pleasant 74-year-old female , who is in no acute distress. Alert, awake, and oriented x3. HEENT: Head: Atraumatic, normocephalic. Eyes: Pupils are equal and reactive to light and accommodation. Oropharynx is clear. Mucosa moist. Neck: Supple. No JVD. No bruits bilaterally. Cardiovascular: Regular rate and rhythm. No murmur. Respiratory: Clear to auscultation bilaterally. Abdomen: Soft, nontender. Bowel sounds are present in all 4 quadrants. Extremities: There is trace bilateral pedal edema. Pulses are +2 bilaterally. No clubbing or cyanosis. On neuro evaluation, the patient does have some intentional tremor to bilateral upper extremities. Otherwise the neuro exam is nonfocal. Cranial Nerves II through XII are grossly intact. Motor strength is 5/5 bilaterally and gait is steady. Speech is clear. PLAN: The patient is being discharged with followup recommended with her primary care provider in 4 to 7 days. The patient is already scheduled for a followup with Dr. Parry within the next couple of weeks. Please note that this a short summary of the patient's hospital stay. Please refer to further medical records for details. Condition at discharge: stable TIME SPENT: Approximately 40 minutes was spent on the patient's discharge. [id number]/[facility] #: [id number] JAKY
== END 2019-02-05 13:15 | disposition home or self-care (01) ==
LOC: ED 11:43 → MEDTELE 17:54 → UNDOADMOB 17:54
PROVIDERS: ADMIT Internal Medicine; ATTEND Internal Medicine
DX: R42 Dizziness and giddiness (principal); R19.7 Diarrhea, unspecified; B96.20 Unspecified Escherichia coli [E. coli] as the cause of diseases classified elsewhere; K52.9 Noninfective gastroenteritis and colitis, unspecified; Z87.11 Personal history of peptic ulcer disease; M19.90 Unspecified osteoarthritis, unspecified site; M81.0 Age-related osteoporosis without current pathological fracture; F32.9 Major depressive disorder, single episode, unspecified; G20 Parkinson's disease; Z98.84 Bariatric surgery status; Z79.82 Long term (current) use of aspirin; E87.6 Hypokalemia; Z88.6 Allergy status to analgesic agent; Z87.891 Personal history of nicotine dependence
CPT/HCPCS: 36415; 70450; 70496; 70498; 70551; 71045; 80048; 80053; 81003; 81015; 83605; 83735; 84484; 85025; 85610; 86140; 87040; 87077; 87086; 87186; 93005; 93306; 96361; 96365; 96375; 99284; A9270-GY; G0378; J0696; J1644; J3475; J3480; Q9967

== ENCOUNTER 2019-05-31 14:03 | Emergency (ER) | payer MEDICARE ==
[2019-05-31 14:17] VITALS: BP 132/71
--- NOTE | 2019-05-31 14:38 | UC ---
[facility] HPI - HPI Summary HPI Summary: 74 yo female with right lower dental pain x 3 days she states she needs a root canal done and plans to see her dentist early next week right lower jaw feels swollen no fever no hx DM - History of Current Complaint Chief Complaint: UCDentalProblem Stated Complaint: TOOTH ACHE Time Seen by Provider: 05/31/19 14:37 Hx Obtained From: Patient Onset/Duration: Gradual Onset, Lasting Days Pain Intensity: 8 Pain Scale Used: 0-10 Numeric Aggravating Factor(s): Heat, Cold, Chewing Alleviating Factor(s): Nothing Related History: Previous Dental Care on Same Tooth Dental: 1 - nelida 2 - abscess - Allergies/Home Medications Allergies/Adverse Reactions: Allergies Allergy/AdvReac Type Severity Reaction Status Date / Time NSAIDS (Non-Steroidal Allergy Severe See Comment Verified 05/31/19 14:17 Anti-Inflamma Quinazolinones Allergy BILAT Verified 05/31/19 14:17 ACHILLES TENDONITIS Home Medications: Home Medications Gabapentin [Neurontin] 100 mg PO TID 05/31/19 [History Confirmed 05/31/19] PMH/Surg Hx/FS Hx/Imm Hx Cardiovascular History: Hypertension Neurological History: Other Other Neurological History: Parkinson's - Surgical History Surgical History: Yes Surgery Procedure, Year, and Place: GASTRIC BYPASS 2007. cholecystectomy 1985, . lysis of adhesions. fundopycation. Hysterectomy 1987,. CATARACT, TONISILLECTOMY - Family History Known Family History: Positive: Non-Contributory Negative: Hypertension - Social History Alcohol Use: None Substance Use Type: Other Substance Use Comment - Amount & Last Used: CBD oil Smoking Status (MU): Former Smoker Type: Cigarettes Have You Smoked in the Last Year: No - Immunization History Most Recent Influenza Vaccination: August 2015 Most Recent Tetanus Shot: 2013 Most Recent Pneumonia Vaccination: 2007 Review of Systems All Other Systems Reviewed And Are Negative: Yes Constitutional: Positive: Negative Skin: Positive: Negative Eyes: Positive: Negative ENT: Positive: Dental Pain Respiratory: Positive: Negative Cardiovascular: Positive: Negative Gastrointestinal: Positive: Negative Genitourinary: Positive: Negative Motor: Positive: Negative Neurovascular: Positive: Negative Musculoskeletal: Positive: Negative Neurological: Positive: Negative Psychological: Positive: Negative Physical Exam Triage Information Reviewed: Yes Appearance: Well-Appearing, No Pain Distress, Well-Nourished Vital Signs: Initial Vital Signs Temp 98 F 05/31/19 14:14 Pulse 96 05/31/19 14:14 Resp 17 05/31/19 14:14 BP 132/71 05/31/19 14:14 Pulse Ox 100 05/31/19 14:14 Eyes: Positive: Conjunctiva Clear ENT: Positive: Hearing grossly normal, Dental tenderness, Uvula midline. Negative: Nasal congestion, Nasal drainage, Trismus, Muffled voice, Hoarse voice Dental: Positive: Other: - see iomage Neck: Positive: Supple, Nontender, No Lymphadenopathy Respiratory: Positive: Lungs clear, Normal breath sounds, No respiratory distress, No accessory muscle use Cardiovascular: Negative: RRR, Tachycardia, Bradycardia Neurological: Positive: Alert, Muscle Tone Normal Psychological Exam: Normal Skin Exam: Normal Dental Complaint Course/Dx - Differential Dx/Diagnosis Provider Diagnosis: Dental abscess Discharge - Sign-Out/Discharge Documenting (check all that apply): Patient Departure All imaging exams completed and their final reports reviewed: No Studies - Discharge Plan Condition: Stable Disposition: HOME Prescriptions: Penicillin VK 500 MG TAB(NF) [Penicillin VK 500 mg Tab] 500 mg PO QID #28 tab Patient Education Materials: Toothache (ED) Referrals: Ehsan Padilla MD [Primary Care Provider] - If Needed Additional Instructions: recheck for new or worsening symptoms recheck in 2 days if not improved see dentist early next week if not better - Billing Disposition and Condition Condition: STABLE Disposition: Home
[2019-05-31] MEDS ORDERED: Penicillin VK TAB* 250 MG PO ONE (14:42)
== END 2019-05-31 15:05 | disposition home or self-care (01) ==
LOC: UCEAST 14:03
DX: K04.7 Periapical abscess without sinus (principal); I10 Essential (primary) hypertension; Z98.84 Bariatric surgery status
CPT/HCPCS: 99212; A9270-GY; G0463

== ENCOUNTER 2019-09-05 16:59 | Emergency (ER) | payer MEDICARE ==
--- OUTSIDE RECORDS SUMMARY | 2019-09-05 17:05 | XMS REPORT | Continuity of Care Document ---
:1945 External Reference #:[id number] Author Name Idalmis Parry M.D. (transmitted by agent of provider [facility]) Address [address] [place] [address], [place] [address] Care Team Providers Name Role Phone Ehsan Padilla MD - Internal Medicine Care Team Information [place] Problems Active Problems Provider Date Essential tremor Idalmis Parry M.D. Onset: 08/21/2015 Resting tremor Idalmis Parry M.D. Onset: 08/21/2015 Note: consistent with parkinson's disease Mild cognitive disorder Idalmis Parry M.D. Onset: 12/10/2015 Note: MoCA: 10/28: ; 01/28: ; 01/29: , 01/30: Olfactory hallucinations Idalmis Parry M.D. Onset: 12/10/2015 Spasmodic torticollis Idalmis Parry M.D. Onset: 12/10/2015 Closed fracture of metatarsal bone Gideon Pollock MD Onset: 04/14/2018 Localized, primary osteoarthritis of the ankle Gideon Pollock MD Onset: 06/05 and/or foot Social History Type Date Description Comments Sex Unknown ETOH Use Denies alcohol use Tobacco Use Start: Unknown End: Patient is a former patient quit in her Unknown smoker early 18, smoked for approx. 5 yrs, ppd Smoking Status Reviewed: 07/20/19 Patient is a former patient quit in her smoker early 18, smoked for approx. 5 yrs, ppd Exercise Exercises regularly Type/Frequency Allergies, Adverse Reactions, Alerts Active Allergies Reaction Severity Comments Date Quinolones Tendonitis Severe 08/21/2015 Inactive Allergies NKDA 11/21/2014 Medications Active Medications SIG Qnty Indications Ordering Date Provider Gabapentin take 2 by mouth 180caps G25.0 Idalmis Brinda, 04/06/2019 100mg Capsules in morning, 2 M.D. at noon, and 2 in evening Baclofen 1 by mouth in 180tabs G24.3 Idalmis Parry, 07/27/2017 10mg Tablets the morning M.D. Carbidopa-Levodopa take one tablet 270tabs R25.1 Idalmis Parry, 08/21/2015 25-100mg by mouth 30 M.D. Tablets minutes prior to breakfast, lunch and dinner Metoprolol Succinate ER 1 by mouth Unknown 50mg twice a day Tablets ER 24HR Citracal Plus twice a day Unknown Tablets Tizanidine HCL take 1 by mouth Unknown 4mg Capsules at night Glucosamine Two Times A Day Unknown 400mg Capsules Prochlorperazine Maleate 1 by mouth Unknown 10mg every 6 hours Tablets as needed nausea Oxycodone-Acetaminophen take 1 tablet Unknown by mouth every 5-325mg Tablets 6 hours as needed pain Lorazepam 1 tab po q 8h Unknown 0.5mg Tablets prn Duloxetine HCL 1 by mouth Unknown 60mg Caps DR every day Part Cyanocobalamin one po a day Unknown 1000mcg Tablets Sub Docusate Sodium 2 caps po daily Unknown 100mg Capsules Benadryl 2 tab po qhs Unknown 25mg Tablets prn sleep Multivitamins 2 tabs po daily Unknown Tab B Complex 1 tab po daily Unknown 50mg Tab Vitamin A 1 by mouth Unknown [id number] Tablets every day Omeprazole 1 cap by mouth 30caps Unknown 20mg Capsules DR twice daily Evista 1 by mouth 30tabs Unknown 60mg Tablets every day Medications Administered in Office Medication SIG Qnty Indications Ordering Provider Date Injection Onabotulinumtoxin A, 1 Idalmis Parry M.D. 05/25/2019 Unit Injection Injection Onabotulinumtoxin A, 1 Idalmis Parry M.D. 02/23/2019 Unit Injection Injection Onabotulinumtoxin A, 1 Idalmis Parry M.D. 11/15/2018 Unit Injection Injection Onabotulinumtoxin A, 1 Idalmis Parry M.D. 08/09/2018 Unit Injection Triamcinolone (Kenalog) Gideon Pollock MD 06/05/2018 Injection Triamcinolone (Kenalog) Gideon Pollock MD 06/05/2018 Injection Injection Onabotulinumtoxin A, 1 Idalmis Parry M.D. 05/03/2018 Unit Injection Injection Onabotulinumtoxin A, 1 Idalmis Parry M.D. 2018 Unit Injection Injection Onabotulinumtoxin A, 1 Idalmis Parry M.D. 10/12/2017 Unit Injection Injection Onabotulinumtoxin A, 1 Idalmis Parry M.D. 07/08/2017 Unit Injection Injection Onabotulinumtoxin A, 1 Idalmis Parry M.D. 07/08/2017 Unit Injection Injection Onabotulinumtoxin A, 1 Idalmis Parry M.D. 02/18/2017 Unit Injection Immunizations Description No Information Available Vital Signs Date Vital Result Comment 07/20/2019 2:03pm Height 61 inches 5'1" Weight 130.00 lb Heart Rate 64 /min BP Systolic 130 mmHg BP Diastolic 70 mmHg BMI (Body Mass Index) 24.6 kg/m2 05/25/2019 3:00pm Height 61 inches 5'1" Weight 133.00 lb Heart Rate 54 /min BP Systolic 128 mmHg BP Diastolic 70 mmHg BMI (Body Mass Index) 25.1 kg/m2 Results Description No Information Available Procedures Date Code Description Status 05/25/2019 65729 Chemodenervation Of Neck Muscles Excluding Larynx, Completed Unilateral 02/23/2019 54305 Chemodenervation Of Neck Muscles Excluding Larynx, Completed Unilateral 02/04/2019 55757 ECHO Transthorasic Realtime 2D W Doppler & Color Flow Hosp Completed Medical Devices Description No Information Available Encounters Type Date Location Provider Dx Diagnosis Office Visit 04/06/2019 [facility] Idalmis Parry, G24.3 Spasmodic 2:[facility] torticollis G20 Parkinson's disease G25.0 Essential tremor R53.1 Weakness Office Visit 02/05/2019 [facility]:00a [facility] gimarcela G20 Parkinson's disease G25.0 Essential tremor Office Visit 02/05/2019 9:29a [facility] R19.7 Diarrhea, unspecified B96.20 Unsp Escherichia coli as the cause of diseases classd elswhr N39.0 Urinary tract infection, site not specified Office Visit 02/04/2019 [facility] D[facility] and 7:00a Clinic [facility] cruz G20 Parkinson's disease G25.0 Essential tremor Office Visit 02/03/2019 9:28a [facility],sophie cruz Hospital[facility] G20 Parkinson's disease Assessments Date Code Description Provider 07/20/2019 G25.0 Essential tremor Idalmis Parry M.D. 07/20/2019 G24.3 Spasmodic torticollis Idalmis Parry M.D. 07/20/2019 G20 Parkinson's disease Idalmis Parry M.D. 05/25/2019 G25.0 Essential tremor Idalmis Parry M.D. 05/25/2019 G24.3 Spasmodic torticollis Idalmis Parry M.D. 04/06/2019 G24.3 Spasmodic torticollis Idalmis Parry M.D. 04/06/2019 G20 Parkinson's disease Idalmis Parry M.D. 04/06/2019 G25.0 Essential tremor Idalmis Parry M.D. 04/06/2019 R53.1 Weakness Idalmis Parry M.D. 02/23/2019 G24.3 Spasmodic torticollis Idalmis Parry M.D. 02/23/2019 G20 Parkinson's disease Idalmis Parry M.D. 02/05/2019 R42 Dizziness and giddiness Leonid Centeno M.D. 02/05/2019 R42 Dizziness and giddiness Shira Nowak M.D. 02/05/2019 G20 Parkinson's disease Leonid Centeno M.D. 02/05/2019 R19.7 Diarrhea, unspecified Shira Nowak M.D. 02/05/2019 G25.0 Essential tremor Leonid Centeno M.D. 02/05/2019 B96.20 Unsp Escherichia coli as the cause [facility] 02/05/2019 N39.0 Urinary tract infection, site not Shira Nowak M.D. specified 02/04/2019 R42 Dizziness and giddiness Leonid Centeno M.D. 02/04/2019 G20 Parkinson's disease Leonid Centeno M.D. 02/04/2019 R42 Dizziness and giddiness Shira Nowak M.D. 02/04/2019 G25.0 Essential tremor Leonid Centeno M.D. 02/04/2019 I63.9 Cerebral infarction, unspecified Reza Calvillo M.D., [facility], [facility] 02/04/2019 R19.7 Diarrhea, unspecified Shira Nowak M.D. 02/04/2019 G20 Parkinson's disease Shira Nowak M.D. 02/04/2019 I10 Essential (primary) hypertension Shira Nowak M.D. 02/04/2019 E87.6 Hypokalemia Shira Nowak M.D. 02/03/2019 R42 Dizziness and giddiness Shira Nowak M.D. 02/03/2019 G20 Parkinson's disease Shira Nowak M.D. Plan of Treatment Future Appointment(s):2020 2:00 pm - Idalmis Parry M.D. at [facility]12/21/2019 2:00 pm - Idalmis Parry M.D. at [facility]09/14/2019 9:30 am - Idalmis Parry M.D. at [facility]07/20/2019 - Idalmis Parry M.D.G25.0 Essential tremorFollow up:continue botox as scheduled, plus schedule follow up for parkinson's disease and essential tremor in6 monthsRecommendations:increase gabapentin to 200mg three times a day.G24.3 Spasmodic [id number] Parkinson' s disease Functional Status Description No Information Available Mental Status Description No Information Available Referrals Description No Information Available
--- OUTSIDE RECORDS SUMMARY | 2019-09-05 17:05 | XMS REPORT | Summary of Care ---
:1945 Author Organization [facility] Address [address] [address] Care Team Providers Name Role Phone Ehsan Padilla MD Primary Care Provider Reason for Visit Reason Comments Lab Work Only done at [facility] 07/09/19, labs were ordered to be done here but Pt was never scheduled (Of note Vit D and TSH are the only non duplicate orders) Parkinson'S Disease f/u, to see Dr Brinda salse ER F/U went to [facility] 05/31/19 for right tooth pain, resolved Osteoporosis f/u, seen Mr Wiggins 07/09/19, had her reclast infusion today URI onset over night, c/o chest congestion, sore throat, dry cough Encounter Details Date Type Department Care Team Description 08/02/2019 Office Visit [place] [facility] Ehsan Padilla MD Impingement syndrome of left shoulder (Primary Dx); Medicine [address] S/P gastric bypass; [address] [place] [address] Palpitations; [place] [address] Essential tremor; [phone] Parkinson disease (HCC); Age-related osteoporosis with current pathological fracture, sequela; Viral syndrome Allergies Active Allergy Reactions Severity Noted Date Comments Levaquin Musculoskeletal 10/01/2014 Achilles tendinitis, wrist/finger tendinitis, September 2014 documented as of this encounter (statuses as of 08/03/2019) Medications Medication Sig Dispensed Refills Start End Date Status Date daily vitamin Oral Take 2 Tabs by 0 Active TabIndications: mouth DAILY. Peptic ulcer VITAMIN A PO Take by mouth 0 Active DAILY. cyanocobalamin (B-12) Take 100 mcg by 0 Active 100 MCG Oral Tab mouth DAILY. B Complex Vitamins Take 50 mg by 0 Active (VITAMIN B COMPLEX mouth DAILY. PO) raloxifene (EVISTA) Take 60 mg by 0 Active 60 MG Oral Tab mouth DAILY. betamethasone Apply to 45 g 5 Active dipropionate 0.05 % affected areas 4 Apply externally daily as needed Cream diphenhydrAMINE Take 50 mg by 0 Active (BENADRYL) 25 MG Oral mouth EVERY Tab BEDTIME NEEDED. docusate sodium Take 200 mg by 0 Active (COLACE) 100 MG Oral mouth DAILY. Cap carbidopa-levodopa Take 1 Tab by 0 Active (SINEMET) 25-100 MG mouth THREE Oral Tab TIMES DAILY. estrogens, conjugated Place 0.25 42.5 g 11 Active (PREMARIN) 0.625 Applicators into 6 MG/GM Vaginal the vagina THREE CreamIndications: TIMES PER WEEK. Recurrent UTI mupirocin (BACTROBAN) Apply to 30 g 5 Active 2 % Apply externally affected areas 6 OintmentIndications: daily as needed Dog bite BACLOFEN PO Take 10 mg by 0 Active mouth EVERY MORNING. As directed - dose currently being adjusted duloxetine (CYMBALTA) TAKE ONE CAPSULE 30 Cap 5 Active 60 MG Oral CAPSULE BY MOUTH ONCE 8 ENTERIC COATED DAILY PARTICLES DIRECTED Nutritional Take by mouth 0 Active Supplements TWICE DAILY. (GLUCOSAMINE FORTE PO) Jzjxaan-Veykfsztq-Fto Take by mouth 0 Active mcdaniel D (CALCIUM TWICE DAILY. MAGNESIUM PO) Omeprazole delayed TAKE ONE CAPSULE 180 Cap 3 Active rel cap 20 MG Oral BY MOUTH TWICE A 9 CAPSULE DELAYED DAY RELEASE prochlorperazine Take 1 Tab by 30 Tab 2 Active (COMPAZINE) 10 MG mouth EVERY SIX 9 Oral Tab HOURS NEEDED (nausea). gabapentin Take 200 mg by 0 Active (NEURONTIN) 100 MG mouth THREE Oral Cap TIMES DAILY. OXYcodone-acetaminoph Take 1 Tab by 90 Tab 0 Active en (PERCOCET) 5-325 mouth EVERY SIX 9 MG Oral HOURS NEEDED TabIndications: (pain). Max Impingement syndrome Daily Amount: 4 of shoulder, left Tabs. Mirabegron ER 25 MG Take 25 mg by 90 Tab 3 Active Oral TABLET SR 24 HR mouth DAILY. 9 metoprolol Take 1 Tab by 180 Tab 3 Active (LOPRESSOR) 50 MG mouth TWICE 9 Oral Tab DAILY. tizanidine (ZANAFLEX) TAKE ONE TABLET 30 Tab 5 Active 4 MG Oral Tab BY MOUTH AT 9 BEDTIME NEEDED FOR LEG CRAMPS LORazepam (ATIVAN) Take 1 Tab by 60 Tab 0 Active 0.5 MG Oral Tab mouth EVERY 9 EIGHT HOURS NEEDED (for insomnia/anxiety ). Max Daily Amount: 1.5 mg. sucralfate (CARAFATE) Take 1 Tab by 360 Tab 3 Active 1 GM Oral Tab mouth EVERY SIX 9 HOURS. sulfamethoxazole-trim Take 1 Tab by 14 Tab 0 08/02/20 Discontinued ethoprim (BACTRIM DS, mouth TWICE 08 02 SEPTRA DS) 800-160 MG DAILY. Oral Tab documented as of this encounter (statuses as of 08/03/2019) Active Problems Problem Noted Date Irritable bladder 01/25/2019 Solar purpura 03/23/2018 S/P gastric bypass 12/11/2015 Rotator cuff syndrome of left shoulder 10/02/2015 Essential tremor 08/12/2013 S/P complete repair of rotator cuff 03/31/2011 Overview: Right rotator cuff surgery Impingement syndrome of shoulder 08/04/2010 Peptic ulcer 11/19/2008 Allergic Rhinitis 01/22/2008 Family history of colon cancer 01/22/2008 Personal history of poliomyelitis 01/22/2008 Osteoporosis Parkinson disease documented as of this encounter (statuses as of 08/03/2019) Resolved Problems Problem Noted Date Resolved Date Vestibular neuronitis 08/30/2013 12/11/2015 Osteoporosis, unspecified 05/28/2011 11/21/2012 Rotator cuff tear 02/10/2011 12/11/2015 Constipation 03/04/2009 12/11/2015 Morbid obesity 04/23/2008 12/29/2010 Depressive Disorder 01/22/2008 12/11/2015 Anxiety 01/22/2008 12/29/2010 GERD 01/22/2008 12/29/2010 Hypertension 01/22/2008 12/29/2010 documented as of this encounter (statuses as of 08/03/2019) Immunizations Name Administration Dates Next Due Depo Medrol (40mg) 05/14/2010, 05/07/2009, 03/04/2008 Hepatitis A Vaccine-Adult 09/15/2016, 03/17/2016 Influenza (IM) Preservative Free 08/19/2016, 07/31/2013, 07/25/2012, 08/27/2011, 08/26/2010, 08/12/2009, 08/28/2008 Influenza Vaccine High Dose 08/01/2018, 07/24/2015, 07/31/2014 Influenza Vaccine Whole 09/02/2004 Kenalog (40 mg) 10/02/2015, 07/03/2014 PNEUMOCOCCAL POLYSACCHARIDE VACCINE 07/11/2008, 01/26/2008 (Deferred: Physician order: Patient to follow-up with PCP) Pneumococcal Conjugate(13 Valent) 02/18/2015 TDAP Vaccine 03/30/2014 ZOSTER (ZOSTAVAX) VACCINE 07/24/2015 dT Vaccine 12/30/1999 documented as of this encounter Social History Tobacco Use Types Packs/Day Years Used Date Former Smoker Cigarettes 2 4 Quit: 11/14/1964 Smokeless Tobacco: Never Used Comments: quit 1965 Alcohol Use Drinks/Week oz/Week Comments No 0 Standard drinks or equivalent 0.0 Sex Assigned at Date Recorded Not on file Job Start Date Occupation Industry Not on file Not on file Not on file Travel History Travel Start Travel End No recent travel history available. documented as of this encounter Last Filed Vital Signs Vital Sign Reading Time Taken Comments Blood Pressure 112/70 08/02/2019 3:14 PM EDT Pulse 66 08/02/2019 3:14 PM EDT Temperature 35.8 08/02/2019 3:14 PM EDT C (96.5 F) Respiratory Rate - - Oxygen Saturation - - Inhaled Oxygen Concentration - - Weight 61.2 kg (135 lb) 08/02/2019 3:14 PM EDT Height 154.9 cm (5' 1") 08/02/2019 3:14 PM EDT Body Mass Index 25.51 08/02/2019 3:14 PM EDT documented in this encounter Patient Instructions Patient InstructionsEhsan Padilla MD - 08/02/2019 3:10 PM EDTContinue same medicines Call or email if resp symptoms worsen Lab today, as previously ordered (just vit D and TSH). I'll notify you of the results with a letter. follow up in 4 months 4 :11 PM EDT documented in this encounter Progress Notes Ehsan Padilla MD - 08/02/2019 3:10 PM EDT PATIENT: Sidra Salazar : 1945 DATE OF SERVICE: 08/02/2019 CHIEF COMPLAINT: Chief Complaint Patient presents with Lab Work Only done at [facility] 07/09/19, labs were ordered to be done here but Pt was never scheduled (Of note Vit D and TSH are the only non duplicate orders) Parkinson'S Disease f/u, to see Dr Parry soon ER F/U went to [facility] 05/31/19 for right tooth pain, resolved Osteoporosis f/u, seen Mr Wiggins 07/09/19, had her reclast infusion today URI onset over night, c/o chest congestion, sore throat, dry cough Subjective HISTORY OF PRESENT ILLNESS: Sidra Salazar is a 74-y.o. female. HPI Had a dental infection in May, needed antibiotic from urgent care which did not work then got more from the dentist, now better. Ultimately will need root canal or extraction Saw bariatric surgery team and will be getting an endoscopy soon there is concern for an ulcer. HadUGI with SBFT, suggested ulcer. Carafate was prescribed but she needs new prescription this has been ordered today. Also switched to Protonix for her proton pump inhibitor. Had lab work ordered by surgeon, all of which was satisfactory. This included CBC, serum chemistries, vitamin B12 and folic acid levels, iron studies, vitamin B1 and vitamin A levels. Saw Mr. Hamlin with Dr. Rucker, osteoporosis under good treatment, had Reclast infusion today. Now with respiratory symptoms that started yesterday with chest congestion dry cough and sore throat. Points to the lower neck and upper chest as to most symptomatic areas Saw Dr. Salinas for Parkinson's recently, and will see her again for Botox injections in the neck. She recently increased gabapentin from 100 mg 3 times a day up to 200 mg 3 times a day. Past Medical History: Diagnosis Date Allergic Rhinitis 01/22/2008 Anxiety 01/22/2008 Depressive Disorder 01/22/2008 Family history of colon cancer 01/22/2008 Foot fracture 1975 left GERD 01/22/2008 Headache(784.0) Hypertension 01/22/2008 Hypertension Irritable bowel syndrome (IBS) Osteopenia Osteoporosis Parkinson disease (HCC) Peptic ulcer, unspecified site, unspecified as acute or chronic, without mention of hemorrhage or perforation 09/2008 Personal history of contraception, presenting hazards to health Personal history of poliomyelitis 01/22/2008 PONV (postoperative nausea and vomiting) Postmenopausal Family History Problem Relation Age of Onset Cancer Father leukemia Colon Cancer Father Cancer Mother colon Colon Cancer Mother Colon Cancer Paternal Grandfather Current Outpatient Medications Medication Sig B Complex Vitamins (VITAMIN B COMPLEX PO) Take 50 mg by mouth DAILY. BACLOFEN PO Take 10 mg by mouth EVERY MORNING. As directed - dose currently being adjusted betamethasone dipropionate 0.05 % Apply externally Cream Apply to affected areas daily as needed Muioshd-Kddsfiekh-Pjzlbcn D (CALCIUM MAGNESIUM PO) Take by mouth TWICE DAILY. carbidopa-levodopa (SINEMET) 25-100 MG Oral Tab Take 1 Tab by mouth THREE TIMES DAILY. cyanocobalamin (B-12) 100 MCG Oral Tab Take 100 mcg by mouth DAILY. daily vitamin Oral Tab Take 2 Tabs by mouth DAILY. diphenhydrAMINE (BENADRYL) 25 MG Oral Tab Take 50 mg by mouth EVERY BEDTIME NEEDED. docusate sodium (COLACE) 100 MG Oral Cap Take 200 mg by mouth DAILY. duloxetine (CYMBALTA) 60 MG Oral CAPSULE ENTERIC COATED PARTICLES TAKE ONE CAPSULE BY MOUTH ONCE DAILY DIRECTED estrogens, conjugated (PREMARIN) 0.625 MG/GM Vaginal Cream Place 0.25 Applicators into the vagina THREE TIMES PER WEEK. gabapentin (NEURONTIN) 100 MG Oral Cap Take 200 mg by mouth THREE TIMES DAILY. LORazepam (ATIVAN) 0.5 MG Oral Tab Take 1 Tab by mouth EVERY EIGHT HOURS NEEDED (for insomnia/anxiety). Max Daily Amount: 1.5 mg. metoprolol (LOPRESSOR) 50 MG Oral Tab Take 1 Tab by mouth TWICE DAILY. Mirabegron ER 25 MG Oral TABLET SR 24 HR Take 25 mg by mouth DAILY. mupirocin (BACTROBAN) 2 % Apply externally Ointment Apply to affected areas daily as needed Nutritional Supplements (GLUCOSAMINE FORTE PO) Take by mouth TWICE DAILY. Omeprazole delayed rel cap 20 MG Oral CAPSULE DELAYED RELEASE TAKE ONE CAPSULE BY MOUTH TWICEA DAY OXYcodone-acetaminophen (PERCOCET) 5-325 MG Oral Tab Take 1 Tab by mouth EVERY SIX HOURS NEEDED (pain). Max Daily Amount: 4 Tabs. prochlorperazine (COMPAZINE) 10 MG Oral Tab Take 1 Tab by mouth EVERY SIX HOURS NEEDED (nausea). raloxifene (EVISTA) 60 MG Oral Tab Take 60 mg by mouth DAILY. tizanidine (ZANAFLEX) 4 MG Oral Tab TAKE ONE TABLET BY MOUTH AT BEDTIME NEEDED FOR LEG CRAMPS VITAMIN A PO Take by mouth DAILY. No current facility-administered medications for this visit. Allergies Allergen Reactions Levaquin Musculoskeletal Achilles tendinitis, wrist/finger tendinitis, September 2014 Social History Socioeconomic History Marital status: Spouse name: Not on file Number of children: Not on file Years of education: Not on file Highest education level: Not on file Occupational History Not on file Social Needs Financial resource strain: Not on file Food insecurity: Worry: Not on file Inability: Not on file Transportation needs: Medical: Not on file Non-medical: Not on file Tobacco Use Smoking status: Former Smoker Packs/day: 2.00 Years: 4.00 Pack years: 8.00 Types: Cigarettes Last attempt to quit: 11/14/1964 Years since quittin.7 Smokeless tobacco: Never Used Tobacco comment: quit 1965 Substance and Sexual Activity Alcohol use: No Alcohol/week: 0.0 standard drinks Drug use: No Sexual activity: Never Lifestyle Physical activity: Days per week: Not on file Minutes per session: Not on file Stress: Not on file Relationships Social connections: Talks on phone: Not on file Gets together: Not on file Attends sabianist service: Not on file Active member of club or organization: Not on file Attends meetings of clubs or organizations: Not on file Relationship status: Not on file Intimate partner violence: Fear of current or ex partner: Not on file Emotionally abused: Not on file Physically abused: Not on file Forced sexual activity: Not on file Other Topics Concern Not on file Social History Narrative Not on file REVIEW OF SYSTEMS: Review of Systems Constitutional: Positive for malaise/fatigue. Negative for weight loss. HENT: Positive for congestion and sore throat. Respiratory: Negative for shortness of breath. Cardiovascular: Negative for chest pain. Gastrointestinal: Positive for abdominal pain. Musculoskeletal: Positive for joint pain. Neurological: Positive for tremors. Objective PHYSICAL EXAM: VITALS: BP 112/70 | Pulse 66 | Temp 96.5 F (35.8 C) | Ht 5' 1" ( 1.549 m) | Wt 135 lb (61.2 kg) | BMI 25.51 kg/m Body mass index is 25.51 kg/m. Physical Exam Alert, oriented, in no acute distress. Tremor noted in head and hands, at rest and with use Vitals as above. HEENT: Normocephalic, atraumatic. CHANDANA, EOMI. Mouth and ears unremarkable. Neck: No palpable lymphadenopathy in the submandibular, submental, anterior cervical, posterior cervical, or occipital chains, nor in the supraclavicular spaces. No JVD, thyromegaly. LUNGS: clear. HEART: Regular rate and rhythm. ABDOMEN: positive bowel sounds, soft, tender in the epigastrium no hepatosplenomegaly, masses or bruits. EXTREMITIES: no cyanosis, clubbing, or edema. Still with pain on range of motion of the left shoulder ASSESSMENT / IMPRESSION: ICD-9-CM ICD-10-CM 1. Impingement syndrome of left shouldercontinue home exercise regimen, continue using pain medicine as needed. 726.2 M75.42 2. S/P gastric bypasswill be getting upper endoscopy to look for ulceration. Continue same medicines, added Carafate 1 g 4 times a day, per her request, which was something that her bariatric surgeon recommended taking V45.86 Z98.84 VITAMIN D 25 HYDROXY (GANNON) 3. Palpitationsrule out hyperthyroid state 785.1 R00.2 THYROID STIMULATING HORMONE 4. Essential tremorstable 333.1 G25.0 5. Parkinson disease (HCC)stable 332.0 G20 6. Age-related osteoporosis with current pathological fracture, sequela treated 905.5 M80.00XS 733.01 7. Viral syndromejust starting. Told her that if symptoms get worse to call 079.99 B34.9 Patient Instructions Continue same medicines Call or email if resp symptoms worsen Lab today, as previously ordered (just vit D and TSH). I'll notify you of the results with a letter. follow up in 4 months Author: Ehsan Padilla MD 08/02/2019 15:57 documented in this encounter Plan of Treatment Date Type Specialty Care Team Description 12/06/2019 Office Visit Internal Medicine Ehsan Padilla MD [facility] [place] [address] [phone] Health Maintenance Due Date Last Done Comments ZOSTER IMMUNIZATION SERIES 09/18/2015 07/24/2015 (2 of 3) MEDICARE ANNUAL WELLNESS 11/18/2017 11/18/2016 (Postponed), VISIT 04/30/2015 (Previously completed) INFLUENZA VACCINE (#1) 2019 08/01/2018, 08/19/2016, 07/24/2015, Additional history exists COLONOSCOPY SCREENING 12/27/2019 12/27/2014, 12/27/2014, 12/26/2014, Additional history exists DEPRESSION SCREENING 04/26/2020 04/26/2019, 04/26/2019 Medication Use Agreement 06/01/2020 06/01/2019 FALL RISK ASSESSMENT 08/02/2020 08/02/2019, 08/02/2019 OSTEOPOROSIS SCREENING 07/12/2028 07/12/2018, 05/27/2016, 04/26/2014, Additional history exists PNEUMOCOCCAL 65+YRS Completed 02/18/2015, 07/11/2008 HPV IMMUNIZATION SERIES Aged Out No longer eligible based on patient's age to complete this topic MENINGOCOCCAL VACCINE IMM Aged Out No longer eligible based on patient's age to complete this topic documented as of this encounter Implants Implanted Type Area Software Sales Representative Device Shelf Model / Identifier Expiration Date Serial / Lot Pushlock 3.5mm - [id number] Right: ARTHREX AR-[id number] / Implanted: Qty: 1 on 03/23/2011 at [facility] Shoulder / [id number] Pushlock 3.5mm - [id number] Right: ARTHREX AR-1926PS / Implanted: Qty: 1 on 03/23/2011 at [facility] / [id number] [place] Rotator Cuff 5mm - [id number] Right: BIOMET [id number] / Implanted: Qty: 1 on 03/23/2011 at [facility] / [id number] Pushlock 3.5mm - [id number] Right: ARTHREX AR-[id number] / Implanted: Qty: 1 on 06/09/2012 at [facility]er / [place] Rotator Cuff 5mm - [id number] Right: BIOMET [id number] / Implanted: Qty: 1 on 06/09/2012 at [facility] Shoulder / [id number] documented as of this encounter Procedures Procedure Name Priority Date/Time Associated Diagnosis Comments VITAMIN D 25 HYDROXY Routine 08/02/2019 4:21 S/P gastric bypass Results for this (GANNON) PM EDT procedure are in the results section. THYROID STIMULATING Routine 08/02/2019 4:21 Palpitations Results for this HORMONE PM EDT procedure are in the results section. documented in this encounter Results THYROID STIMULATING HORMONE (08/02/2019 4:21 PM EDT) TSH 1.79 0.47 - 4.68 uIu/ml [facility] Specimen Blood Performing Organization Address [facility] Phone Number [facility] [address] [address] [phone] VITAMIN D 25 HYDROXY (GANNON) (08/02/2019 4:21 PM EDT) Vitamin D 25 HYDROXY 37.7 32.0 - 100.0 [facility] ng/ml LABORATORY Specimen Blood Narrative Performed At Interpretation: [facility] <20 ng/ml Deficiency 20-<30 ng/ml Insufficiency 32-100 ng/ml Sufficiency >100 ng/ml Potential Toxicity Performing Organization Address [facility] Facilitycook Phone Number [facility] [address] [address] documented in this encounter Visit Diagnoses Diagnosis Impingement syndrome of left shoulder - Primary Other affections of shoulder region, not elsewhere classified S/P gastric bypass Bariatric surgery status Palpitations Essential tremor Essential and other specified forms of tremor Parkinson disease (HCC) Paralysis agitans Age-related osteoporosis with current pathological fracture, sequela Viral syndrome Unspecified viral infection, in conditions classified elsewhere and of unspecified site documented in this encounter Insurance Payer Benefit Plan / Subscriber ID Effective Dates Phone Address Type Group MEDICARE MEDICARE PART A xxxxxxxxxxx 2008-Present Medicare & B [facility] [address] [facility] xxxxxxxxxxx 2017-Present [employer] OPTIONS Guarantor Name Account Type Relation to Date of Phone Billing Address Patient Sidra Salazar Personal/Family [phone] (Home) [facility] [phone] [facility] [place] [id number] (Work) documented as of this encounter Advance Directives Type Date Recorded 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
--- NOTE | 2019-09-05 18:04 | UC ---
UC General HPI - HPI Summary HPI Summary: 74-year-old woman comes in with a chief complaint of fatigue and myalgias and arthralgias. The last 2 days she's had decreased appetite. During the evening she had 5-6 large bowel movements. Been feeling very fatigued. Feels dizzy like she is drunk. Denies any spinning or vertigo symptoms. Denies runny nose shorts of breath cough chest congestion. Denies any chest pain or abdominal pain. She reports the stools are formed did not see any blood in the stools. No dysuria or UTI symptoms. Reports that her mouth feels dry. - History of Current Complaint Chief Complaint: UCGeneralIllness Stated Complaint: WEAK/FATIGUE/BODY ACHES Time Seen by Provider: 09/05/19 17:36 Pain Intensity: 7 - Allergy/Home Medications Allergies/Adverse Reactions: Allergies Allergy/AdvReac Type Severity Reaction Status Date / Time NSAIDS (Non-Steroidal Allergy Severe See Comment Verified 09/05/19 17:16 Anti-Inflamma Quinazolinones Allergy BILAT Verified 09/05/19 17:16 ACHILLES TENDONITIS PMH/Surg Hx/FS Hx/Imm Hx Previously Healthy: Yes - [place] Cardiovascular History: Hypertension GI/ History: Gastroesophageal Reflux - Surgical History Surgical History: Yes Surgery Procedure, Year, and Place: GASTRIC BYPASS 2007. cholecystectomy 1985, . lysis of adhesions. fundopycation. Hysterectomy 1987,. CATARACT, TONISILLECTOMY - Family History Known Family History: Positive: Non-Contributory Negative: Hypertension - Social History Alcohol Use: None Substance Use Type: None Substance Use Comment - Amount & Last Used: CBD oil Smoking Status (MU): Former Smoker Type: Cigarettes Have You Smoked in the Last Year: No - Immunization History Most Recent Influenza Vaccination: August 2015 Most Recent Tetanus Shot: 2013 Most Recent Pneumonia Vaccination: 2007 Review of Systems All Other Systems Reviewed And Are Negative: Yes Constitutional: Positive: Fatigue, Other - SEE HPI Skin: Positive: Negative Eyes: Positive: Negative ENT: Positive: Other - SEE HPI Respiratory: Positive: Negative, Shortness Of Breath Gastrointestinal: Positive: Other - SEE HPI Genitourinary: Positive: Negative Motor: Positive: Negative Neurovascular: Positive: Negative Musculoskeletal: Positive: Arthralgia, Myalgia Neurological: Positive: Negative Psychological: Positive: Negative Is Patient Immunocompromised?: No Physical Exam Triage Information Reviewed: Yes Appearance: No Pain Distress, Well-Nourished, Ill-Appearing - MILD Vital Signs: Initial Vital Signs Temp 98.3 F 09/05/19 17:08 Pulse 72 09/05/19 17:08 Resp 16 09/05/19 17:08 BP 123/71 09/05/19 17:08 Pulse Ox 97 09/05/19 17:08 Vital Signs Reviewed: Yes Eye Exam: Normal Eyes: Positive: Conjunctiva Clear ENT: Positive: Pharynx normal, TMs normal Neck: Positive: Supple Respiratory: Positive: Lungs clear, Normal breath sounds, No respiratory distress Cardiovascular: Positive: RRR, Other: - Positive murmur. Abdomen Description: Positive: Nontender, Soft. Negative: CVA Tenderness (R), CVA Tenderness (L) Bowel Sounds: Positive: Present Musculoskeletal: Positive: Strength Intact, ROM Intact, Edema @ - Bilateral edema which the patient reports is chronic. Neurological: Positive: Alert, Muscle Tone Normal Psychological: Positive: Normal Response To Family, Age Appropriate Behavior Skin Exam: Normal Course/Dx - Course Course Of Treatment: I discussed the urine results and also the orthostatic vital signs results with the patient and her daughter. Patient reports that she felt well during the orthostatic vital signs however there was a significant change with heart rate and blood pressure. Patient denies any pain anywhere. With the urine having nitrates and the patient reported that she's had a history of silent UTIs in the past we discussed treating for a UTI. We also discussed that if she is not feeling well she should go to the emergency department right now. At this time the patient prefers to treat for UTI but if she gets worse during the night or at any time should go directly to the emergency department. - Diagnoses Provider Diagnosis: Fatigue, Dehydration Discharge ED - Sign-Out/Discharge Documenting (check all that apply): Patient Departure All imaging exams completed and their final reports reviewed: No Studies - Discharge Plan Condition: Stable Disposition: HOME Prescriptions: Sulfamethox/Trimethoprim DS* [Bactrim DS 800/160 TAB*] 1 tab PO BID #14 tab Patient Education Materials: Dehydration (ED), Fatigue (ED), Urinary Tract Infection in Women (ED) Referrals: Ehsan Padilla MD [Primary Care Provider] - Additional Instructions: FOLLOW UP WITH YOUR DOCTOR. GO TO THE EMERGENCY DEPARTMENT IF YOU DO NOT IMPROVE OR YOUR CONDITION WORSENS; FEVER, YOU FEEL ILL OR ANY QUESTIONS OR CONCERNS. - Billing Disposition and Condition Condition: STABLE Disposition: Home
[2019-09-05 18:15] VITALS: BP 96/61
== END 2019-09-05 19:04 | disposition home or self-care (01) ==
LOC: UCEAST 16:59
DX: E86.0 Dehydration (principal); R53.83 Other fatigue; I10 Essential (primary) hypertension; M79.10 Myalgia, unspecified site; M25.50 Pain in unspecified joint; Z88.8 Allergy status to other drugs, medicaments and biological substances; Z87.891 Personal history of nicotine dependence
CPT/HCPCS: 81003; 87077; 87086; 87186; 99212; G0463

== ENCOUNTER 2023-10-27 17:52 | Observation (INO) ==
[2023-10-27 20:39] LABS: ABS Basophils 0.1 10^3/uL (0.0-0.1); ABS Eosinophils 0.1 10^3/uL (0.0-0.5); ABS Lymphocytes 1.8 10^3/uL (1.0-4.8); ABS Monocytes 0.4 10^3/uL (0.0-0.9); ABS Neutrophils 2.9 10^3/uL (1.5-7.6); Eosinophil % 1.3 %; Hemoglobin 11.7 g/dL (11.5-14.3); Lymphocyte % 34.6 %; Mean Corpuscular Hemoglobin 30.6 pg (27-33); Mean Corpuscular Hgb Conc 33.3 g/dL (31-36); Mean Corpuscular Volume 91.8 fL (80-97); Mean Platelet Volume 8.2 fL (7.5-11.2); Platelet Count 208 10^3/uL (150-450); Red Blood Count 3.82 10^6/uL (3.63-4.92); Red Cell Distribution Width 15.2 % (12-17); White Blood Count 5.3 10^3/uL (3.8-11.8)
[2023-10-27 20:58] LABS: Albumin 3.7 g/dL (3.2-5.2); Albumin/Globulin Ratio 1.5 (1-3); Calcium 8.7 mg/dL (8.6-10.3); Creatinine, Serum 0.42 mg/dL (0.51-0.95); Globulin 2.5 g/dL (2-4); Potassium 2.9 mmol/L (3.5-5.0); Total Bilirubin 0.3 mg/dL (0.2-1.0); Total Protein 6.2 g/dL (6.4-8.9); eGFR CKD-EPI 98.8 (>60)
[2023-10-27] MEDS ORDERED: Potassium Chlor 20 meq TAB.ER PO ONE (22:17)
[2023-10-27 22:36] LABS: High Sensitivity Troponin 1 Hr 6 pg/mL (<15)
[2023-10-28] MEDS ORDERED: Carbidopa/Levodop 25/100 MG TAB PO SCH ×3 (02:42→18:00)
[2023-10-28] MEDS: TAPENTADOL 50 MG PO PRN ×2 (04:36→16:59)
[2023-10-28 05:08] LABS: ABS Eosinophils 0.1 10^3/uL (0.0-0.5); ABS Lymphocytes 1.6 10^3/uL (1.0-4.8); ABS Monocytes 0.4 10^3/uL (0.0-0.9); ABS Neutrophils 2.7 10^3/uL (1.5-7.6); Eosinophil % 1.8 %; Hematocrit 36.2 % (35-45); Hemoglobin 12.1 g/dL (11.5-14.3); Lymphocyte % 32.7 %; Mean Corpuscular Hemoglobin 30.9 pg (27-33); Mean Corpuscular Hgb Conc 33.4 g/dL (31-36); Mean Corpuscular Volume 92.3 fL (80-97); Mean Platelet Volume 8.4 fL (7.5-11.2); Nucleated Red Blood Cells % 0.1 %/100WBC (0.0-0.8); Platelet Count 198 10^3/uL (150-450); Red Blood Count 3.92 10^6/uL (3.63-4.92); Red Cell Distribution Width 15.4 % (12-17); White Blood Count 4.9 10^3/uL (3.8-11.8)
[2023-10-28 05:26] LABS: Calcium 8.5 mg/dL (8.6-10.3); Creatinine, Serum 0.44 mg/dL (0.51-0.95); Potassium 3.2 mmol/L (3.5-5.0); eGFR CKD-EPI 97.7 (>60)
[2023-10-28] MEDS ORDERED: Potassium Chlor 20 meq TAB.ER PO ONE (05:53)
[2023-10-28] MEDS ORDERED: Enoxaparin 40 MG/0.4 ML SYR SUBCUT SCH (06:00)
[2023-10-28] MEDS ORDERED: Carbidopa/Levodop 25/100 MG TAB ONE (07:47)
[2023-10-28] MEDS ORDERED: CMCS:Mirabegron 25 mg ER TAB (NF) PO SCH (09:00)
[2023-10-28] MEDS ORDERED: DULoxetine DR 60 mg CAP PO SCH (09:00)
[2023-10-28] MEDS ORDERED: Carbidopa/Levodop CR 50/200 TAB.CR PO SCH ×4 (09:00→15:00)
[2023-10-28] MEDS ORDERED: Potassium Chloride LIQUID 20 MEQ/15 ML LIQUID PO ONE (11:36)
[2023-10-28 18:32] VITALS: BP 147/63
== END 2023-10-28 18:31 | disposition home or self-care (01) ==
LOC: EDHOLD 17:52 → ED 17:52 → SUATTDRO 23:38 → EDHOLD 10-28 19:05
PROVIDERS: ADMIT Internal Medicine; ATTEND Internal Medicine